=== PATIENT | male | born 1955 | race Caucasian/White ===

== ENCOUNTER 2018-02-08 20:58 | Inpatient (IN) | payer MEDICARE, MEDICAID ==
[2018-02-08 21:35] LABS: % BASOPHILS 0.7 % (0.0-2.0); % EOSINOPHILS 2.3 % (0.0-5.0); % LYMPHOCYTES 39.7 % (20.0-50.0); % MONOCYTES 10.3 % (2.0-10.0); EOSINOPHILE ABSOLUTE 0.1 Th/cmm (0.1-0.4); HEMATOCRIT 41.3 % (41.0-60); LYMPHOCYTE ABSOLUTE 2.3 Th/cmm (1.5-3.0); MEAN CELL VOLUME 93.7 fl (80-99); MEAN CORPUSCULAR HEMOGLOBIN 31.8 pg (26.0-30.0); MEAN PLATELET VOLUME 6.8 fl; MONOCYTE ABSOLUTE 0.6 Th/cmm (0.3-1.0); NEUTROPHILE ABSOLUTE 2.7 Th/cmm (1.8-8.0); PLATELET COUNT 245 Th/cmm (150-400); RED CELL DISTRIBUTION WIDTH 12.2 % (11.5-20.0); WHITE BLOOD COUNT 5.7 Th/cmm (4.8-10.8)
--- NOTE | 2018-02-08 21:48 | ED Physician Chart ---
ED Chief Complaint/HPI - Patient Information Date Seen:: 02/08/18 Time Seen:: 21:00 Chief Complaint:: Weakness History of Present Illness:: onset x 3 days of generalized weakness, ALOC, AMS, confusion, and poor oral intake; no report of trauma, H/As, S/T, neck pain, C/P, SOB, Abd. pain, A/N/V/D/ c, fever, chills, or urinary s/s Allergies:: Allergies Allergy/AdvReac Type Severity Reaction Status Date / Time acetaminophen [From Vicodin] Allergy Verified 02/08/18 21:01 codeine Allergy Verified 02/08/18 21:01 hydrocodone Allergy Verified 02/08/18 21:01 Vitals:: Vital Signs - 8 hr 02/08/18 21:01 Temp 98.0 F HR 86 RR 18 BP 133/75 O2 Sat % 96 Historian:: Patient, EMS Review:: Nurse's Note Reviewed, Old Chart Reviewed, EMS run form Reviewed ED Review of Systems - Review of Systems General/Constitutional: Fever, No chills, No weight loss, Weakness, No diaphoresis, No edema, No loss of appetite Skin: No skin lesions, No rash, No bruising Head: No headache, No light-headedness Eyes: No loss of vision, No pain, No diplopia ENT: No earache, No nasal drainage, No sore throat, No tinnitus Neck: No neck pain, No swelling, No thyromegaly, No stiffness, No mass noted Cardio Vascular: No chest pain, No palpitations, No PND, No orthopnea, No edema Pulmonary: No SOB, No cough, No sputum, No wheezing GI: No nausea, No vomiting, No diarrhea, No pain, No melena, No hematochezia, No constipation, No hematemesis G/U: No dysuria, No frequency, No hematuria, No nacturia Musculoskeletal: No bone or joint pain, No back pain, No muscle pain Endocrine: No polyuria, No polydipsia Psychiatric: Prior psych history, No depression, No anxiety, No suicidal ideation, No homicidal ideation, Auditory hallucination, No visual hallucination Hematopoietic: No bruising, No lymphadenopathy Allergic/Immuno: No urticaria, No angioedema Neurological: No syncope, No focal symptoms, Weakness, No paresthesia, No headache, No seizure, No dizziness, Confusion, No vertigo ED Past Medical History - Past Medical History Obtainable: Yes Past Medical History: HTN, DM, CVA/TIA, Seizures Family History: Diabetes Melitus, HTN Social History: Non Smoker, No Alcohol, No Drug Use, Single, Care Facility Surgical History: None Psychiatricy History: Schizophrenia Medication: Reviewed Family Medical History - Family Member Mother History Unknown: Yes ED Physical Exam - Physical Examination General/Constitutional: Awake, Well-developed, well-nourished, Alert, No distress, GCS 15, Non-toxic appearing, Ambulatory Head: Atraumatic Eyes: Lids, conjuctiva normal, PERRL, EOMI Skin: Nl inspection, No rash, No skin lesions, No ecchymosis, No lymphadenopathy Other Skin comments:: poor turgor with dry MM ENMT: External ears, nose nl, TM canals nl, Nasal exam nl, Lips, teeth, gums nl , Oropharynx nl, Tonsils nl Neck: Nontender, Full ROM w/o pain, No JVD, No nuchal rigidity, No bruit, No mass, No stridor Respiratory: Nl effort/Exclusion, Clear to Auscultation, No Wheeze/Rhonchi/Rales Cardio Vascular: RRR, No murmur, gallop, rubs, NL S1 S2, Carotid/Femoral/Distal pulses equal bilaterally GI: No tenderness/rebounding/guarding, No organomegaly, No hernia, Normal BS's, Nondistended, No mass/bruits, No McBurney tenderness : No CVA tenderness Extremities: No tenderness or effusion, Full ROM, normal strength in all extremities, No edema, Normal digits & nails Neuro/Psych: DTR's symmetric, Normal sensory exam, Normal motor strength, Judgement/insight normal, Mood normal, Normal gait, No focal deficits Other Neuro/Psych comments:: Disoriented and confused Misc: Normal back, No paraspinal tenderness ED Labs/Radiology/EKG Results - Lab Results Results: Laboratory Tests 02/08/18 21:23 WBC 5.7 RBC 4.40 Hgb 14.0 Hct 41.3 MCV 93.7 MCH 31.8 H MCHC Differential 34.0 RDW 12.2 Plt Count 245 MPV 6.8 Neutrophils % 47.0 Lymphocytes % 39.7 Monocytes % 10.3 H Eosinophils % 2.3 Basophils % 0.7 Comments:: Na+: 134; K+: 3.4 - Radiology Results Comments:: NAD - EKG Interpretations EKG Time:: 22:02 Rate & Rhythm: 85; NSR Comments:: non-specific st-t changes ED Septic Shock - . Is Septic Shock (SBP<90, OR Lactate>4 mmol\L) present?: No - <6hrs of presentation: Vital Signs: Vital Signs - 8 hr 02/08/18 21:01 Temp 98.0 F HR 86 RR 18 BP 133/75 O2 Sat % 96 ED Reassessment (Disposition) - Reassessment Reassessment Condition:: Improved - Diagnosis Diagnosis:: Hypokalemia; Hyponatremiia; Dehydration; Poor Oral Intake; Dementia - Aftercare/Follow up Instructions Aftercare/Follow-Up Instructions:: Counseled pt regarding lab results/diagnosis & need follow up, Counseled pt & family regarding lab results/diagnosis & need follow up - Patient Disposition Discharge/Transfer:: Acute Care w/in this hosp Accepting Physician:: Dr. Roe Time Called:: [id number] Time Responded:: 22:30 Admitted to:: Med/Surg Spoke to:: Dr. Roe Admitting Medical Physician:: Dr. Roe Condition at Disposition:: Stable, Improved
[2018-02-08 21:51] LABS: INR 0.99 (0.5-1.4); PROTHROMBIN TIME (TEST) 10.3 SECONDS (9.5-11.5)
[2018-02-08 21:55] LABS: ALB/GLOB RATIO 1.2 (1.0-1.8); ALKALINE PHOSPHATASE 94 U/L (34-104); ANION GAP 12.1 (7.0-16.0); BILIRUBIN,TOTAL 0.2 mg/dL (0.3-1.0); BUN - UREA NITROGEN 10 mg/dL (7-25); CALCIUM SERUM 9.1 mg/dL (8.6-10.3); CARBON DIOXIDE 25.3 mEq/L (21.0-31.0); CHLORIDE 100 mEq/L (98-107); CREATININE - SERUM 0.6 mg/dL (0.7-1.3); CREATININE KINASE 44 U/L (30-223); GFR AFRICAN-AMERICAN > 60.0 ml/min (>90); GFR NON AFRICAN-AMERICAN > 60.0 ml/min; GLUCOSE 118 mg/dL (70-105); POTASSIUM SERUM 3.4 mEq/L (3.5-5.1); SGOT 20 U/L (13-39); SGPT/ALT 28 U/L (7-52); SODIUM SERUM 134 mEq/L (136-145); TOTAL PROTEIN,SERUM 7.4 gm/dL (6.0-8.3)
[2018-02-08] MEDS ORDERED: Sodium Chloride 0.9% 1,000 ML IV ONE (21:59)
[2018-02-08] MEDS ORDERED: Potassium Chloride 20 mEq ER Tab PO ONE ×2 (22:00→22:37)
[2018-02-08 22:34] LABS: URINE MICROSCOPIC INDICATED? YES; URINE SOURCE MIDSTREAM
[2018-02-08 22:39] LABS: URINE BILIRUBIN NEGATIVE (NEGATIVE); URINE BLOOD NEGATIVE (NEGATIVE); URINE GLUCOSE (UA) NEGATIVE (NEGATIVE); URINE KETONE NEGATIVE (NEGATIVE); URINE LEUKOCYTE ESTERASE NEGATIVE (NEGATIVE); URINE NITRATE NEGATIVE (NEGATIVE); URINE PH 7.5 (4.6 - 8.0); URINE PROTEIN NEGATIVE (NEGATIVE); URINE UROBILINOGEN 0.2 E.U./dL (0.2 - 1.0)
[2018-02-08 22:43] LABS: URINE CLARITY CLEAR (CLEAR); URINE COLOR YELLOW
[2018-02-08 22:44] LABS: URINE BACTERIA FEW /hpf (NONE SEEN); URINE EPITHELIAL CELLS RARE /lpf (FEW); URINE RBC 0-2 /hpf (0-5); URINE WBC 0-2 /hpf (0-5)
[2018-02-08] MEDS ORDERED: Sodium Chloride 0.9% 1,000 ML IV SCH (23:00)
[2018-02-09 01:40] VITALS: BP 133/88
--- NOTE | 2018-02-09 05:51 | History and Physical ---
History of Present Illness - HPI Chief Complaint: Fatigue/Weakness HPI: 62 y/o male who presents to [facility] ER for 3 day history of fatigue/Weakness noted by the nursing staff. Patient was noted to have increased confusion at the facility. He was subsequently sent for further evaluation. While in the ER, the ER physician states, "ALOC, AMS, confusion, and poor oral intake; no report of trauma, H/As, S/T, neck pain, C/P, SOB, Abd. pain, A/N/V/D/c, fever, chills, or urinary s/s" Initial labwork .... WBC 5.7 H/H 14/41.3 Plat 245K Na 134 K 3.4 Bun/Cr 10/0.6 glu 118 UA neg ED Past Medical History - Past Medical History Obtainable: Yes Past Medical History: HTN, DM, CVA/TIA, Seizures Family History: Diabetes Melitus, HTN Social History: Non Smoker, No Alcohol, No Drug Use, Single, Care Facility Surgical History: None Psychiatricy History: Schizophrenia Medication: Reviewed Family Medical History - Family Member Mother History Unknown: Yes Patient was subsequently admitted for further evaluation and treatment. Vital Signs: Last Vital Signs Temp 967.7 F 02/09/18 04:00 Pulse 74 02/09/18 04:00 Resp 17 02/09/18 04:00 BP 126/83 02/09/18 04:00 Pulse Ox 95 02/09/18 04:00 Past Medical History Cardiovascular: Report: HTN [employer]: Report: CVA, Dementia, Seizure, TIA Psych: Report: Psychosis, Schizophrenia Musculoskeletal: Report: No Pertinent Hx Rheumatologic: Report: No pertinent Hx Infectious Disease: Report: No Pertinent Hx Renal/: Report: No Pertinent Hx Endocrine: Report: Diabetes Dermatology: Report: No Pertinent Hx - Past Surgical History Past Surgical History: No pertinent Hx Family Medical History - Family Member Mother History Unknown: Yes Social History Smoke: No Alcohol: None Drugs: None Lives: [facility] - Medications Home Medications: Home Medication Medication Instructions Recorded Type Benztropine [Cogentin*] 2 mg PO HS 02/08/18 History Calcium Carb/Vit D 500mg/200U 2 tab PO BID 02/08/18 History [Oscal w/Vitamin D] Divalproex Sodium [Depakote] 250 mg PO TID 02/08/18 History Lorazepam [Ativan] 1 mg PO DAILY 02/08/18 History Magnesium Hydroxide [Milk of 30 ml PO QTHUR 02/08/18 History Magnesia] Multivitamin [Multivitamins] 1 cap PO DAILY 02/08/18 History Phenytoin [Dilantin] 150 mg PO BID 02/08/18 History amLODIPine Besylate [Norvasc*] 10 mg PO DAILY 02/08/18 History busPIRone [Buspar] 7.5 mg PO BID 02/08/18 History risperiDONE [RisperDAL] 3 mg PO BID 02/08/18 History - Allergies Allergies/Adverse Reactions: Allergies Allergy/AdvReac Type Severity Reaction Status Date / Time acetaminophen [From Vicodin] Allergy Verified 02/08/18 21:01 codeine Allergy Verified 02/08/18 21:01 hydrocodone Allergy Verified 02/08/18 21:01 Review of Systems - Review of Systems Constitutional: Report: No Significant Eyes: Report: No Significant ENT: Report: No Significant Respiratory: Report: No Significant Cardiovascular: Report: No Significant Gastrointestinal: Report: No Significant Genitourinary: Report: No Significant Musculoskeletal: Report: No Significant Skin: Report: No Significant Neurological: Report: Weakness, Confusion Physical Exam - Physical Exam HEENT: Report: Ears Nose Throat within normal limits, Pharnyx within normal limits Neck: Report: Within normal limits Cardiovascular Systems: Report: +s1/s2 noted, Regular, Rate and Rhythm Respiratory: Report: Breath Sounds are within normal limits Abdomen: Report: Non-tender to palpation Back: Report: Inspection of back is within normal limits. Extremities: Report: Non-tender to palpation. Skin: Report: Color of skin is within normal limits Neuro/Psych: Report: Mood affect is within normal limits, A+Ox3 - Assessment Assessment: Hypokalemia Hyponatremiia Dehydration Poor Oral Intake Dementia - Plan Plan: Will admit to med-surg Psychiatric Evaluation w/ Dr. mann repeat CBC,CMP this AM Continue home meds
[2018-02-09 06:12] LABS: % BASOPHILS 0.2 % (0.0-2.0); % EOSINOPHILS 2.2 % (0.0-5.0); % MONOCYTES 9.2 % (2.0-10.0); % NEUTROPHILS 55.4 % (40.0-80.0); EOSINOPHILE ABSOLUTE 0.1 Th/cmm (0.1-0.4); HEMATOCRIT 43.2 % (41.0-60); HEMOGLOBIN 14.5 gm/dL (12-16); LYMPHOCYTE ABSOLUTE 1.9 Th/cmm (1.5-3.0); MEAN CORPUSCULAR HEMOGLOBIN 31.3 pg (26.0-30.0); MEAN CORPUSCULAR HGB CONC 33.6 pg (28.0-36.0); MEAN PLATELET VOLUME 6.8 fl; MONOCYTE ABSOLUTE 0.5 Th/cmm (0.3-1.0); NEUTROPHILE ABSOLUTE 3.2 Th/cmm (1.8-8.0); PLATELET COUNT 237 Th/cmm (150-400); RED BLOOD COUNT 4.65 Mil/cmm (4.30-5.70); RED CELL DISTRIBUTION WIDTH 12.1 % (11.5-20.0); WHITE BLOOD COUNT 5.7 Th/cmm (4.8-10.8)
[2018-02-09 06:25] LABS: ALB/GLOB RATIO 1.1 (1.0-1.8); ALKALINE PHOSPHATASE 94 U/L (34-104); ANION GAP 11.2 (7.0-16.0); BILIRUBIN,TOTAL 0.3 mg/dL (0.3-1.0); BUN - UREA NITROGEN 7 mg/dL (7-25); CALCIUM SERUM 9.1 mg/dL (8.6-10.3); CARBON DIOXIDE 23.7 mEq/L (21.0-31.0); CHLORIDE 103 mEq/L (98-107); CREATININE - SERUM 0.6 mg/dL (0.7-1.3); GFR AFRICAN-AMERICAN > 60.0 ml/min (>90); GFR NON AFRICAN-AMERICAN > 60.0 ml/min; GLUCOSE 99 mg/dL (70-105); POTASSIUM SERUM 3.9 mEq/L (3.5-5.1); SGOT 18 U/L (13-39); SGPT/ALT 27 U/L (7-52); SODIUM SERUM 134 mEq/L (136-145); TOTAL PROTEIN,SERUM 7.6 gm/dL (6.0-8.3)
[2018-02-09] MEDS: Magnesium Hydroxide (MOM) 30 mL UDC PO SCH ×2 (06:41→06:42)
--- NOTE | 2018-02-09 07:37 | Diagnostic Imaging Report ---
CHEST X-RAY: AP view INDICATION: pain COMPARISON: None FINDINGS: Chronic lung changes are noted. Increased left basal lung markings are also noted. There is probable left basal pleural thickening. Heart size is borderline prominent. There is minimal atherosclerosis of the aortic arch. Degenerative changes of the spine are noted. IMPRESSION: Chronic lung changes with left basal increased lung markings which may be chronic or may be due to atelectasis, however, faint infiltrate in this region cannot be excluded. Please clinical findings and old exams. If indicated a follow-up PA and lateral views may also be obtained for further assessment. LEFT basal pleural thickening suspected.
--- NOTE | 2018-02-09 08:05 | Consultation ---
DATE OF CONSULTATION: 02/09/2018 PSYCHIATRIC CONSULT PATIENT'S AGE: 62-year-old. SEX: Male. PHYSICIAN: Dr. Vazquez. REASON FOR THE CONSULT: Generalized weakness. HISTORY OF PRESENT ILLNESS: The patient is a 62-year-old male who was admitted to the hospital because of fatigue and weakness for 3 days. The patient also has history of bipolar versus schizoaffective disorder and Dr. Vazquez asked me to evaluate the patient. Chart reviewed and the patient interviewed and discussed the patient's condition with the staff. The patient is [place] speaking male. He seems to be confused and forgetful. The patient also was not able to follow my directions because of his confusion. The patient also at times seems to be agitated and restless. He also is alert at this time and seems oriented to place, person and situation. PAST PSYCHIATRIC HISTORY: The patient has history of what seems to be schizoaffective disorder. MEDICATIONS: The patient is taking Risperdal, Depakote, Ativan and BuSpar. PAST MEDICAL HISTORY: The patient was admitted to the hospital because of fatigue and generalized weakness. SOCIAL HISTORY: The patient lives in a care home. No known alcohol or drug use. ALLERGIES: No known allergies. MENTAL STATUS EXAM: The patient appears slightly older than his stated age. He is [place] speaking. Anxious. Seems to be confused. Thought processes per the staff have been incoherent and disorganized. The patient seems to be preoccupied and responding. Poor insight and judgment. The patient is alert and seems to be disoriented to place, person and situation. ASSESSMENT: PRIMARY DIAGNOSIS: Schizoaffective disorder, bipolar type, severe, with psychotic features. TREATMENT PLAN: We will monitor the patient's behavior and condition closely. We will start individual as well as milieu psychotherapy. We will also monitor psychotropic medications. At this time and because of his generalized weakness, I will discontinue BuSpar. Also, we will decrease Risperdal to 2 mg twice a day. Also, we will continue to work on his fatigue and irritability. Also, we will get Depakote blood level. Thanks to Dr. Vazquez and will follow up with you. JOB# [id number]
[2018-02-09] MEDS: Multivitamin Tab PO SCH (09:20)
[2018-02-09] MEDS: Calcium Carb/Vit D 500 mg/200 U Tab PO SCH ×2 (09:23→17:00)
[2018-02-09] MEDS ORDERED: Benztropine 1 MG TAB PO SCH (21:00)
--- NOTE | 2018-02-10 08:15 | General Progress Note ---
Subjective - Review of Systems Service Date: 02/10/18 Subjective: Patient was seen and examined. No acute distress. Awake, alert. afebrile. for evaluation to daily-psyche. Objective - Results Result Diagrams: 02/09/18 05:55 02/09/18 05:55 Recent Labs: Laboratory Last Values WBC 5.7 Th/cmm (4.8-10.8) 02/09/18 05:55 RBC 4.65 Mil/cmm (4.30-5.70) 02/09/18 05:55 Hgb 14.5 gm/dL (12-16) 02/09/18 05:55 Hct 43.2 % (41.0-60) 02/09/18 05:55 MCV 93.0 fl (80-99) 02/09/18 05:55 MCH 31.3 pg (26.0-30.0) H 02/09/18 05:55 MCHC Differential 33.6 pg (28.0-36.0) 02/09/18 05:55 RDW 12.1 % (11.5-20.0) 02/09/18 05:55 Plt Count 237 Th/cmm (150-400) 02/09/18 05:55 MPV 6.8 fl 02/09/18 05:55 Neutrophils % 55.4 % (40.0-80.0) 02/09/18 05:55 Lymphocytes % 33.0 % (20.0-50.0) 02/09/18 05:55 Monocytes % 9.2 % (2.0-10.0) 02/09/18 05:55 Eosinophils % 2.2 % (0.0-5.0) 02/09/18 05:55 Basophils % 0.2 % (0.0-2.0) 02/09/18 05:55 PT 10.3 SECONDS (9.5-11.5) 02/08/18 21:23 INR 0.99 (0.5-1.4) 02/08/18 21:23 PTT (Actin FS) 26.3 SECONDS (26.0-38.0) 02/08/18 21:23 Sodium 134 mEq/L (136-145) L 02/09/18 05:55 Potassium 3.9 mEq/L (3.5-5.1) 02/09/18 05:55 Chloride 103 mEq/L (98-107) 02/09/18 05:55 Carbon Dioxide 23.7 mEq/L (21.0-31.0) 02/09/18 05:55 Anion Gap 11.2 (7.0-16.0) 02/09/18 05:55 BUN 7 mg/dL (7-25) 02/09/18 05:55 Creatinine 0.6 mg/dL (0.7-1.3) L 02/09/18 05:55 Est GFR ( Amer) > 60.0 ml/min (>90) 02/09/18 05:55 Est GFR (Non-Af Amer) > 60.0 ml/min 02/09/18 05:55 BUN/Creatinine Ratio 11.7 02/09/18 05:55 Glucose 99 mg/dL (70-105) 02/09/18 05:55 Whole Bld Lactic Acid 1.75 mmol/L (0.60-1.99) 02/08/18 21:23 Calcium 9.1 mg/dL (8.6-10.3) 02/09/18 05:55 Total Bilirubin 0.3 mg/dL (0.3-1.0) 02/09/18 05:55 AST 18 U/L (13-39) 02/09/18 05:55 ALT 27 U/L (7-52) 02/09/18 05:55 Alkaline Phosphatase 94 U/L (34-104) 02/09/18 05:55 Creatine Kinase 44 U/L (30-223) 02/08/18 21:23 Troponin I < 0.01 ng/mL (0.01-0.05) L 02/08/18 21:23 Total Protein 7.6 gm/dL (6.0-8.3) 02/09/18 05:55 Albumin 4.0 gm/dL (4.2-5.5) L 02/09/18 05:55 Globulin 3.6 gm/dL 02/09/18 05:55 Albumin/Globulin Ratio 1.1 (1.0-1.8) 02/09/18 05:55 Urine Source MIDSTREAM 02/08/18 22:15 Urine Color YELLOW 02/08/18 22:15 Urine Clarity CLEAR (CLEAR) 02/08/18 22:15 Urine pH 7.5 (4.6 - 8.0) 02/08/18 22:15 Ur Specific [place] 1.010 (1.005-1.030) 02/08/18 22:15 Urine Protein NEGATIVE mg/dL (NEGATIVE) 02/08/18 22:15 Urine Glucose (UA) NEGATIVE mg/dL (NEGATIVE) 02/08/18 22:15 Urine Ketones NEGATIVE mg/dL (NEGATIVE) 02/08/18 22:15 Urine Blood NEGATIVE (NEGATIVE) 02/08/18 22:15 Urine Nitrate NEGATIVE (NEGATIVE) 02/08/18 22:15 Urine Bilirubin NEGATIVE (NEGATIVE) 02/08/18 22:15 Urine Urobilinogen 0.2 E.U./dL (0.2 - 1.0) 02/08/18 22:15 Ur Leukocyte Esterase NEGATIVE (NEGATIVE) 02/08/18 22:15 Urine RBC 0-2 /hpf (0-5) H 02/08/18 22:15 Urine WBC 0-2 /hpf (0-5) 02/08/18 22:15 Ur Epithelial Cells RARE /lpf (FEW) 02/08/18 22:15 Urine Bacteria FEW /hpf (NONE SEEN) 02/08/18 22:15 Valproic Acid 34.7 ug/mL (50.0-100.0) L 02/09/18 05:55 - Physical Exam Vitals and I&O: Vital Signs Temp 97.2 F 02/10/18 07:52 Pulse 77 02/10/18 07:52 Resp 18 02/10/18 07:52 BP 145/92 02/10/18 07:52 Pulse Ox 96 02/10/18 07:52 Intake & Output 02/09/18 02/10/18 02/10/18 18:59 06:59 18:59 Intake Total 800 Balance 800 Weight (lbs) 78.925 kg 71.395 kg Intake: Oral 800 Other: # Voids 4 # Bowel Movements 1 Weight Source Bedscale Bedscale Active Medications: Current Medications Amlodipine Besylate (Norvasc) 10 mg PO DAILY BRIAN Stop: 04/10/18 08:59 Last Admin: 02/09/18 09:23 Dose: Not Given Benztropine Mesylate (Cogentin) 2 mg PO BRIAN Stop: 04/10/18 20:59 Last Admin: 02/09/18 20:03 Dose: 2 mg Calcium/Vitamin D (Oscal W/Vitamin D) 2 tab PO BID BRIAN Stop: 04/10/18 08:59 Last Admin: 02/09/18 17:00 Dose: 2 tab Divalproex Sodium (Depakote Dr) 250 mg PO TID BRIAN PRN Reason: Protocol Stop: 04/10/18 08:59 Last Admin: 02/09/18 20:03 Dose: 250 mg Sodium Chloride (Nacl 0.9%) 1,000 mls @ 50 mls/hr IV .Q20H BRIAN Stop: 04/09/18 22:59 Last Admin: 02/09/18 01:54 Dose: 50 mls/hr Lorazepam (Ativan) 1 mg PO DAILY [facility] PRN Reason: Protocol Stop: 04/10/18 08:59 Last Admin: 02/09/18 09:23 Dose: Not Given Magnesium Hydroxide (Milk Of Magnesia) 30 ml PO QTHUR BRIAN Stop: 04/10/18 04:59 Last Admin: 02/09/18 06:42 Dose: Not Given Multivitamins/Vitamin C (Theragran) 1 tab PO DAILY BRIAN Stop: 04/10/18 08:59 Last Admin: 02/09/18 09:20 Dose: 1 tab Phenytoin (Dilantin) 150 mg PO BID BRIAN Stop: 04/10/18 08:59 Last Admin: 02/09/18 17:00 Dose: 150 mg Risperidone (Risperdal) 2 mg PO BID [facility] PRN Reason: Protocol Stop: 04/10/18 08:59 Last Admin: 02/09/18 17:00 Dose: 2 mg General: Alert, Oriented x3, No acute distress HEENT: Atraumatic, PERRLA, EOMI Neck: Supple Cardiovascular: Regular rate, Normal S1, Normal S2 Lungs: Clear to auscultation Abdomen: Bowel sounds, Soft, no Distended Extremities: no Clubbing, no Cyanosis, no Edema Assessment/Plan - Assessment Assessment: Hypokalemia Hyponatremiia Dehydration Poor Oral Intake Dementia HTN - Plan Plan: Will admit to med-surg Psychiatric Evaluation w/ Dr. mann repeat CBC,CMP this AM Continue home meds for evaluation for geropsyche medically stable. will add clonidine 0.1mg PO q8
[2018-02-10] MEDS: Calcium Carb/Vit D 500 mg/200 U Tab PO SCH (09:28)
[2018-02-10] MEDS: Multivitamin Tab PO SCH (09:28)
--- NOTE | 2018-02-10 10:15 | Progress Notes ---
DATE: SUBJECTIVE: Chart reviewed and the patient interviewed. Also discussed the patient's condition with the staff and reviewed records and labs. The patient is still anxious and he is still in irritable and angry mood. The patient also is restless and he is pacing up and down and trying to get out of the hospital in a confused state. He also still needs lots of redirections and gets agitated and irritable when staff tried to redirect him. Although the patient is taking multiple psychotropic medications, if he is still agitated and is still confused and can be dangerous to self . ASSESSMENT: The patient is still psychotic and confused. PLAN: Recommend that the patient to go to Geropsych Unit when bed available. Also continue current medications and monitor behavior closely. JOB# [id number]
--- NOTE | 2018-02-15 18:53 | Discharge Summary ---
DATE OF DISCHARGE: 02/10/2018 PRELIMINARY DIAGNOSES. 1. Hypokalemia. 2. Hyponatremia. 3. Dehydration. 4. Poor oral intake. 5. Dementia. 6. Hypertension. 7. Diabetes mellitus. 8. CVA/TIA. 9. Seizure disorder. 10. Schizophrenia. DISCHARGE DIAGNOSES: 1. Hypokalemia. 2. Hyponatremia. 3. Dehydration. 4. Poor oral intake. 5. Dementia. 6. Hypertension. 7. Diabetes mellitus. 8. CVA/TIA. 9. Seizure disorder. 10. Schizophrenia. HISTORY OF PRESENT ILLNESS: This is a 62-year-old male who presents to [facility] ER for a 3-day history of fatigue, weakness noted by the nursing staff. The patient was noted to have increased confusion at the long-term facility and was subsequently sent for further evaluation and treatment. While in the ER, the ER physician did some initial lab work with a white count noted to be 5.7, hemoglobin 14.0, hematocrit 41.3, platelets 245,000. Sodium 134, potassium 3.4, BUN and creatinine 10 and 0.6, glucose 118. UA was negative. The patient subsequently admitted to [facility] for further evaluation and treatment. Psychiatric evaluation by Dr. Bunch was ordered. The patient was to continue his home medications. I ordered a repeat CBC and CMP for the following morning. HOSPITAL COURSE: The patient improved during his hospital stay with increased energy. The patient was subsequently transferred to [facility] for further evaluation and treatment. The patient was seen and evaluated by Psychiatry. Please see his dictated report. [facility]# [id number]
== END 2018-02-10 10:00 | DRG 641 ==
LOC: ER 20:58 → MSI 23:05
PROVIDERS: ADMIT Family Medicine; ATTEND Family Medicine
DX: E87.1 Hypo-osmolality and hyponatremia (principal); F31.5 Bipolar disorder, current episode depressed, severe, with psychotic features; E87.6 Hypokalemia; E86.0 Dehydration; F03.90 Unspecified dementia, unspecified severity, without behavioral disturbance, psychotic disturbance, mood disturbance, and anxiety; I10 Essential (primary) hypertension; E11.9 Type 2 diabetes mellitus without complications; R56.9 Unspecified convulsions; Z86.73 Personal history of transient ischemic attack (TIA), and cerebral infarction without residual deficits; Z83.3 Family history of diabetes mellitus; Z82.49 Family history of ischemic heart disease and other diseases of the circulatory system
CPT/HCPCS: 36415-UA; 71045-TC; 80053-TC; 80164-TC; 81001-TC; 82550-TC; 83605; 84484-TC; 85025-TC; 85610-TC; 85730-TC; 93005; J7030; Z7610

== ENCOUNTER 2019-01-22 19:39 | Inpatient (IN) | payer MEDICAID, MEDICARE ==
--- NOTE | 2019-01-22 20:32 | ED Physician Chart ---
ED Chief Complaint/HPI - Patient Information Date Seen:: 01/22/19 Time Seen:: 20:29 Chief Complaint:: AGITATION History of Present Illness:: 63 YR OLD MALE FROM [facility] FOR AGITATION GEROPSYCH EVALUATION PT HAS HTN DM CVA SEIZURES AND PSYCHOSIS Allergies:: Allergies Allergy/AdvReac Type Severity Reaction Status Date / Time acetaminophen [From Vicodin] Allergy Severe Verified 01/22/19 20:12 codeine Allergy Severe Verified 01/22/19 20:11 hydrocodone Allergy Severe Verified 01/22/19 20:12 Vitals:: Vital Signs - 8 hr 01/22/19 19:47 Temp 97.4 F HR 86 RR 18 BP 131/77 O2 Sat % 96 ED Past Medical History - Past Medical History Past Medical History: HTN, DM, CVA/TIA, Seizures Psychiatricy History: Dementia, Other (PSYCHOSIS) Family Medical History - Family Member Mother History Unknown: Yes ED Physical Exam - Physical Examination General/Constitutional: Awake, Well-developed, well-nourished, Alert, No distress, GCS 15, Non-toxic appearing, Ambulatory Head: Atraumatic Eyes: Lids, conjuctiva normal, PERRL, EOMI Skin: Nl inspection, No rash, No skin lesions, No ecchymosis, Well hydrated, No lymphadenopathy ENMT: External ears, nose nl, Nasal exam nl, Lips, teeth, gums nl Neck: Nontender, Full ROM w/o pain, No JVD, No nuchal rigidity, No bruit, No mass, No stridor Respiratory: Nl effort/Exclusion, Clear to Auscultation, No Wheeze/Rhonchi/Rales Cardio Vascular: RRR, No murmur, gallop, rubs, NL S1 S2 GI: No tenderness/rebounding/guarding, No organomegaly, No hernia, Normal BS's, Nondistended, No mass/bruits, No McBurney tenderness : No CVA tenderness Extremities: No tenderness or effusion, Full ROM, normal strength in all extremities, No edema, Normal digits & nails Neuro/Psych: Alert/oriented, DTR's symmetric, Normal sensory exam, Normal motor strength, Judgement/insight normal, Mood normal, Normal gait, No focal deficits Misc: Normal back, No paraspinal tenderness ED Assessment - Assessment General Assessment: AGITATION DEMENTIA ED Septic Shock - . Is Septic Shock (SBP<90, OR Lactate>4 mmol\L) present?: No - <6hrs of presentation: Vital Signs: Vital Signs - 8 hr 01/22/19 19:47 Temp 97.4 F HR 86 RR 18 BP 131/77 O2 Sat % 96 ED Reassessment (Disposition) - Reassessment Reassessment:: AGITATION PSYCHOSIS - Patient Disposition Discharge/Transfer:: Acute Care w/in this hosp Admitted to:: Med/Surg Condition at Disposition:: Stable
[2019-01-22 20:47] LABS: HEMOGLOBIN 13.9 gm/dL (12-16); MEAN CELL VOLUME 93.8 fl (80-99); MEAN CORPUSCULAR HEMOGLOBIN 31.8 pg (26.0-30.0); MEAN CORPUSCULAR HGB CONC 33.9 pg (28.0-36.0); MEAN PLATELET VOLUME 6.3 fl; PLATELET COUNT 248 Th/cmm (150-400); RED BLOOD COUNT 4.37 Mil/cmm (4.30-5.70); RED CELL DISTRIBUTION WIDTH 12.3 % (11.5-20.0); WHITE BLOOD COUNT 5.9 Th/cmm (4.8-10.8)
[2019-01-22 21:35] LABS: ALB/GLOB RATIO 1.5 (1.0-1.8); ALBUMIN 4.1 gm/dL (4.2-5.5); ALKALINE PHOSPHATASE 86 U/L (34-104); ANION GAP 13.6 (7.0-16.0); BILIRUBIN,TOTAL 0.3 mg/dL (0.3-1.0); BUN - UREA NITROGEN 12 mg/dL (7-25); CALCIUM SERUM 9.1 mg/dL (8.6-10.3); CHLORIDE 100 mEq/L (98-107); CREATININE - SERUM 0.7 mg/dL (0.7-1.3); GFR AFRICAN-AMERICAN > 60.0 ml/min (>90); GFR NON AFRICAN-AMERICAN > 60.0 ml/min; GLUCOSE 135 mg/dL (70-105); POTASSIUM SERUM 3.6 mEq/L (3.5-5.1); SGOT 18 U/L (13-39); SGPT/ALT 26 U/L (7-52); SODIUM SERUM 133 mEq/L (136-145); TOTAL PROTEIN,SERUM 6.9 gm/dL (6.0-8.3)
[2019-01-22 21:44] LABS: BAND NEUTROPHILE 0 % (0-10); BASOPHIL 0 % (0-3); EOSINOPHIL 1 % (0-5); LYMPHOCYTE 46 % (20-50); MONOCYTE 9 % (2-10); NEUTROPHILS 44 % (40-80)
[2019-01-22 21:50] LABS: URINE SOURCE CLEAN C
[2019-01-22 21:52] LABS: URINE BILIRUBIN NEGATIVE (NEGATIVE); URINE BLOOD NEGATIVE (NEGATIVE); URINE GLUCOSE (UA) NEGATIVE (NEGATIVE); URINE KETONE NEGATIVE (NEGATIVE); URINE LEUKOCYTE ESTERASE NEGATIVE (NEGATIVE); URINE NITRATE NEGATIVE (NEGATIVE); URINE PROTEIN NEGATIVE (NEGATIVE); URINE UROBILINOGEN 0.2 E.U./dL (0.2 - 1.0)
[2019-01-22 22:02] LABS: URINE CLARITY CLEAR (CLEAR); URINE COLOR YELLOW; URINE MICROSCOPIC INDICATED? YES
[2019-01-22 22:03] LABS: URINE EPITHELIAL CELLS NONE SEEN /lpf (FEW); URINE RBC NONE SEEN /hpf (0-5); URINE WBC 0-2 /hpf (0-5)
[2019-01-22 22:04] LABS: URINE BACTERIA FEW /hpf (NONE SEEN)
[2019-01-22 23:47] VITALS: BP 113/71
[2019-01-23 01:20] LABS: CHOLESTEROL 236 mg/dL (<200); HDL -HIGH DENSITY LIPOPROTEIN 38 mg/dL (23-92); TRIGLYCERIDES 651 mg/dL (<150)
[2019-01-23] MEDS ORDERED: Maalox 30 mL Cup PO PRN (04:11)
--- NOTE | 2019-01-23 08:39 | History and Physical ---
History of Present Illness - HPI Chief Complaint: Change in behavior HPI: 63 y/o male who is a resident of a SNF was transferred to [facility] for change in behavior noted by the nursing staff. Patient has a past medical history of HTN, DM, CVA, Seizure d/o and psychosis. Patient had initial labwork done in the ER which revealed the following.... WBC 5.9 H/H 13.9/41.0 platelets 248K Na 133 K 3.6 Bun/Cr 12/0.7 glucose 135 UA neg Chol 235 Trig 651 HDL 38 LDL 126 Patient was subsequently admitted to [facility] for further evaluation and treatment. Vital Signs: Last Vital Signs Temp 97.8 F 01/23/19 06:19 Pulse 84 01/23/19 06:19 Resp 20 01/23/19 06:19 BP 140/94 01/23/19 06:19 Pulse Ox 92 01/23/19 06:19 Past Medical History Cardiovascular: Report: HTN, Hyperlipidemia Pulmonary: Report: No Pertinent Hx ORDER FULFILLMENT SPECIALIST: Report: CVA, Dementia, Seizure GI: Report: No Pertinent Hx Psych: Report: Psychosis Musculoskeletal: Report: No Pertinent Hx Rheumatologic: Report: No pertinent Hx Infectious Disease: Report: No Pertinent Hx Renal/: Report: No Pertinent Hx Endocrine: Report: Diabetes Dermatology: Report: No Pertinent Hx - Past Surgical History Past Surgical History: No pertinent Hx Family Medical History - Family Member Mother History Unknown: Yes Ethnicity: Unknown Living Status: Unknown Social History Smoke: No Alcohol: None Drugs: None Lives: Prison - Medications Home Medications: Home Medication Medication Instructions Recorded Type Acetaminophen [Tylenol] 650 mg PO Q4HR PRN tab 02/23/18 Rx Al Hyd/Mg Hyd/Simethicone [Maalox] 30 ml PO Q4HR PRN udc 02/23/18 Rx Benztropine [Cogentin*] 2 mg PO HS tab 02/23/[address] [Depakoamrita DR] 500 mg PO BID tcp 02/23/18 Rx Lorazepam [Ativan] 0.5 mg PO Q4HR PRN tab 02/23/18 Rx Magnesium Hydroxide [Milk of 30 ml PO HS PRN udc 02/23/18 Rx Magnesia] Magnesium Hydroxide [Milk of 30 ml PO QTHUR udc 02/23/18 Rx Magnesia] Metoprolol Tartrate [Lopressor] 25 mg PO BID tab 02/23/18 Rx Multivitamin [Theragran] 1 tab PO DAILY tab 02/23/18 Rx Phenytoin [Dilantin] 150 mg PO BID udc 02/23/18 Rx Zolpidem Tartrate [Ambien] 5 mg PO HS PRN tab 02/23/18 Rx amLODIPine Besylate [Norvasc*] 10 mg PO DAILY tab 02/23/18 Rx cloNIDine HCl [Catapres] 0.1 mg PO Q8HR PRN tab 02/23/18 Rx Benztropine [Cogentin*] 2 mg PO HS 01/22/19 History Calcium Carb/Vit D 500mg/200U 1 tab PO BID 01/22/19 History [Oscal w/Vitamin D] Docusate Sodium [Colace] 250 mg PO DAILY 01/22/19 History Lorazepam [Ativan] 0.75 mg PO DAILY 01/22/19 History Magnesium Hydroxide [Milk of 30 ml PO HS 01/22/19 History Magnesia] busPIRone [Buspar] 5 mg PO BID 01/22/19 History risperiDONE [RisperDAL] 2.5 mg PO BID 01/22/19 History - Allergies Allergies/Adverse Reactions: Allergies Allergy/AdvReac Type Severity Reaction Status Date / Time acetaminophen [From Vicodin] Allergy Severe Verified 01/22/19 20:12 codeine Allergy Severe Verified 01/22/19 20:11 hydrocodone Allergy Severe Verified 01/22/19 20:12 Review of Systems - Review of Systems Constitutional: Report: No Significant Eyes: Report: No Significant ENT: Report: No Significant Respiratory: Report: No Significant Cardiovascular: Report: No Significant Gastrointestinal: Report: No Significant Genitourinary: Report: No Significant Musculoskeletal: Report: No Significant Skin: Report: No Significant Neurological: Report: No Significant Physical Exam - Physical Exam HEENT: Report: Ears Nose Throat within normal limits, Pharnyx within normal limits Neck: Report: Within normal limits Cardiovascular Systems: Report: +s1/s2 noted, Regular, Rate and Rhythm Respiratory: Report: Breath Sounds are within normal limits, Clear to Auscultation of lung reece Abdomen: Report: Non-tender to palpation Back: Report: Inspection of back is within normal limits. Extremities: Report: Non-tender to palpation. Skin: Report: Color of skin is within normal limits Neuro/Psych: Report: Mood affect is within normal limits, A+Ox3 - Lab Results All Lab Results last 24 hours: Laboratory Results - last 24 hr 01/22/19 01/22/19 01/22/19 20:30 20:30 20:30 WBC 5.9 RBC 4.37 Hgb 13.9 Hct 41.0 MCV 93.8 MCH 31.8 H MCHC Differential 33.9 RDW 12.3 Plt Count 248 MPV 6.3 Add Manual Diff YES Band Neutrophils % 0 Neutrophils (Manual) 44 Lymphocytes 46 Monocytes 9 Eosinophils 1 Basophils 0 Sodium 133 L Potassium 3.6 Chloride 100 Carbon Dioxide 23.0 Anion Gap 13.6 BUN 12 Creatinine 0.7 Est GFR ( Amer) > 60.0 Est GFR (Non-Af Amer) > 60.0 BUN/Creatinine Ratio 17.1 Glucose 135 H Calcium 9.1 Total Bilirubin 0.3 AST 18 ALT 26 Alkaline Phosphatase 86 Total Protein 6.9 Albumin 4.1 L Globulin 2.8 Albumin/Globulin Ratio 1.5 Triglycerides 651 H Cholesterol 236 H LDL Cholesterol Direct 126 HDL Cholesterol 38 Urine Source Urine Color Urine Clarity Urine pH Ur Specific [place] Urine Protein Urine Glucose (UA) Urine Ketones Urine Blood Urine Nitrate Urine Bilirubin Urine Urobilinogen Ur Leukocyte Esterase Urine RBC Urine WBC Ur Epithelial Cells Urine Bacteria 01/22/19 21:41 WBC RBC Hgb Hct MCV MCH MCHC Differential RDW Plt Count MPV Add Manual Diff Band Neutrophils % Neutrophils (Manual) Lymphocytes Monocytes Eosinophils Basophils Sodium Potassium Chloride Carbon Dioxide Anion Gap BUN Creatinine Est GFR ( Amer) Est GFR (Non-Af Amer) BUN/Creatinine Ratio Glucose Calcium Total Bilirubin AST ALT Alkaline Phosphatase Total Protein Albumin Globulin Albumin/Globulin Ratio Triglycerides Cholesterol LDL Cholesterol Direct HDL Cholesterol Urine Source CLEAN C Urine Color YELLOW Urine Clarity CLEAR Urine pH 7.0 Ur Specific [place] 1.010 Urine Protein NEGATIVE Urine Glucose (UA) NEGATIVE Urine Ketones NEGATIVE Urine Blood NEGATIVE Urine Nitrate NEGATIVE Urine Bilirubin NEGATIVE Urine Urobilinogen 0.2 Ur Leukocyte Esterase NEGATIVE Urine RBC NONE SEEN Urine WBC 0-2 Ur Epithelial Cells NONE SEEN Urine Bacteria FEW - Assessment Assessment: psychosis HTN, DM, CVA, Seizure d/o - Plan Plan: will admitted patient to [facility] home meds.
[2019-01-23] MEDS: Multivitamin Tab PO SCH (08:55)
[2019-01-23] MEDS: Calcium Carb/Vit D 500 mg/200 U Tab PO SCH ×2 (08:56→17:09)
--- NOTE | 2019-01-23 11:45 | History & Physical ---
ADMIT DATE: 01/22/2019 IDENTIFYING INFORMATION: The patient is a 63-year-old male. CHIEF COMPLAINT: No answer. HISTORY OF PRESENT ILLNESS: The patient was sent from [facility] facility to this hospital because of behavior problems. 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 He was not making sense. He believes that he is 18 years of age and that he is single, never , no children. Unable to tell me the date, where he is, why he is here. The patient has prior admissions to this facility back in January of last year, a year ago. The patient unable to give much information. He is also diabetic. PAST PSYCHIATRIC HISTORY: The patient was at [facility] almost a year ago because of confusion at the long-term. The patient also was a very poor historian with a history of schizophrenia. MEDICAL HISTORY: CVA, seizure, TIA. ALLERGIES: HE IS ALLERGIC TO ACETAMINOPHEN, CODEINE, AND HYDROCODONE. MEDICATIONS: The patient has been on amlodipine, Cogentin 2 mg at bedtime, BuSpar 5 mg twice a day. He is on calcium and vitamin D and clonidine as needed. He is on Depakote 500 mg twice a day, multivitamin, Dilantin 150 twice a day, Risperdal 2.5 mg twice a day. FAMILY AND SOCIAL HISTORY: The patient lives in nursing facility. Unable to give much information. MENTAL STATUS EXAMINATION: The patient was alert. He was able to talk; however, unable to answer questions appropriately. He believes he is 18 years of age, he has middle school education, used to work as a rail car driver. His affect is constricted. Thoughts are concrete. Speech is coherent yet confused, demented. 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 He cannot remember his age, believes he is 18. Recent memory is poor, cannot remember what happened that led to admission here. His insight about his illness is impaired. is judgment is poor with his behavior. IMPRESSION: Dementia with behavior disturbances. History of schizophrenia. MEDICAL DIAGNOSES: As per medical doctor. RECOMMENDATIONS: We will continue his medication. We will do group therapy and milieu therapy. ESTIMATED LENGTH OF STAY: 3-7 days. DISCHARGE CRITERIA: Decrease in psychosis, confusion. After discharge, outpatient treatment. JOB# [id number] [facility]
[2019-01-23] MEDS: Benztropine 1 MG TAB PO SCH (20:43)
[2019-01-23] MEDS: Magnesium Hydroxide (MOM) 30 mL UDC PO SCH (20:43)
[2019-01-23] MEDS ORDERED: Benztropine 1 MG TAB PO SCH (21:00)
--- NOTE | 2019-01-24 08:12 | General Progress Note ---
Subjective - Review of Systems Service Date: 01/24/19 Subjective: Patient is awake,alert, afebrile VS T97.9 P85 R20 BP 128/76 Objective - Results Result Diagrams: 01/22/19 20:30 01/22/19 20:30 Recent Labs: Laboratory Last Values WBC 5.9 Th/cmm (4.8-10.8) 01/22/19 20:30 RBC 4.37 Mil/cmm (4.30-5.70) 01/22/19 20:30 Hgb 13.9 gm/dL (12-16) 01/22/19 20:30 Hct 41.0 % (41.0-60) 01/22/19 20:30 MCV 93.8 fl (80-99) 01/22/19 20:30 MCH 31.8 pg (26.0-30.0) H 01/22/19 20:30 MCHC Differential 33.9 pg (28.0-36.0) 01/22/19 20:30 RDW 12.3 % (11.5-20.0) 01/22/19 20:30 Plt Count 248 Th/cmm (150-400) 01/22/19 20:30 MPV 6.3 fl 01/22/19 20:30 Add Manual Diff YES 01/22/19 20:30 Band Neutrophils % 0 % (0-10) 01/22/19 20:30 Neutrophils (Manual) 44 % (40-80) 01/22/19 20:30 Lymphocytes 46 % (20-50) 01/22/19 20:30 Monocytes 9 % (2-10) 01/22/19 20:30 Eosinophils 1 % (0-5) 01/22/19 20:30 Basophils 0 % (0-3) 01/22/19 20:30 Sodium 133 mEq/L (136-145) L 01/22/19 20:30 Potassium 3.6 mEq/L (3.5-5.1) 01/22/19 20:30 Chloride 100 mEq/L (98-107) 01/22/19 20:30 Carbon Dioxide 23.0 mEq/L (21.0-31.0) 01/22/19 20:30 Anion Gap 13.6 (7.0-16.0) 01/22/19 20:30 BUN 12 mg/dL (7-25) 01/22/19 20:30 Creatinine 0.7 mg/dL (0.7-1.3) 01/22/19 20:30 Est GFR ( Amer) > 60.0 ml/min (>90) 01/22/19 20:30 Est GFR (Non-Af Amer) > 60.0 ml/min 01/22/19 20:30 BUN/Creatinine Ratio 17.1 01/22/19 20:30 Glucose 135 mg/dL (70-105) H 01/22/19 20:30 Calcium 9.1 mg/dL (8.6-10.3) 01/22/19 20:30 Total Bilirubin 0.3 mg/dL (0.3-1.0) 01/22/19 20:30 AST 18 U/L (13-39) 01/22/19 20:30 ALT 26 U/L (7-52) 01/22/19 20:30 Alkaline Phosphatase 86 U/L (34-104) 01/22/19 20:30 Total Protein 6.9 gm/dL (6.0-8.3) 01/22/19 20:30 Albumin 4.1 gm/dL (4.2-5.5) L 01/22/19 20:30 Globulin 2.8 gm/dL 01/22/19 20:30 Albumin/Globulin Ratio 1.5 (1.0-1.8) 01/22/19 20:30 Triglycerides 651 mg/dL (<150) H 01/22/19 20:30 Cholesterol 236 mg/dL (<200) H 01/22/19 20:30 LDL Cholesterol Direct 126 mg/dL (75-193) 01/22/19 20:30 HDL Cholesterol 38 mg/dL (23-92) 01/22/19 20:30 Urine Source CLEAN C 01/22/19 21:41 Urine Color YELLOW 01/22/19 21:41 Urine Clarity CLEAR (CLEAR) 01/22/19 21:41 Urine pH 7.0 (4.6 - 8.0) 01/22/19 21:41 Ur Specific [place] 1.010 (1.005-1.030) 01/22/19 21:41 Urine Protein NEGATIVE mg/dL (NEGATIVE) 01/22/19 21:41 Urine Glucose (UA) NEGATIVE mg/dL (NEGATIVE) 01/22/19 21:41 Urine Ketones NEGATIVE mg/dL (NEGATIVE) 01/22/19 21:41 Urine Blood NEGATIVE (NEGATIVE) 01/22/19 21:41 Urine Nitrate NEGATIVE (NEGATIVE) 01/22/19 21:41 Urine Bilirubin NEGATIVE (NEGATIVE) 01/22/19 21:41 Urine Urobilinogen 0.2 E.U./dL (0.2 - 1.0) 01/22/19 21:41 Ur Leukocyte Esterase NEGATIVE (NEGATIVE) 01/22/19 21:41 Urine RBC NONE SEEN /hpf (0-5) 01/22/19 21:41 Urine WBC 0-2 /hpf (0-5) 01/22/19 21:41 Ur Epithelial Cells NONE SEEN /lpf (FEW) 01/22/19 21:41 Urine Bacteria FEW /hpf (NONE SEEN) 01/22/19 21:41 - Physical Exam Vitals and I&O: Vital Signs Temp 97.9 F 01/24/19 05:36 Pulse 85 01/24/19 05:36 Resp 20 01/24/19 05:36 BP 128/76 01/24/19 05:36 Pulse Ox 97 01/24/19 05:36 Intake & Output 01/23/19 01/24/19 01/24/19 18:59 06:59 18:59 Intake Total 300 Balance 300 Intake: Oral 300 Other: # Voids 1 # Bowel Movements 0 Active Medications: Current Medications Acetaminophen (Tylenol) 650 mg PO Q4HR PRN PRN Reason: Mild Pain / Temp above 100 Stop: 03/24/19 04:10 Al Hydrox/Mg Hydrox/Simethicone (Maalox) 30 ml PO Q4HR PRN PRN Reason: GI DISTRESS Stop: 03/24/19 04:10 Amlodipine Besylate (Norvasc) 10 mg PO DAILY [facility] Stop: 03/24/19 08:59 Last Admin: 01/23/19 08:55 Dose: 10 mg Benztropine Mesylate (Cogentin) 2 mg PO HS [facility] Stop: 03/24/19 20:59 Last Admin: 01/23/19 20:43 Dose: 2 mg Buspirone HCl (Buspar) 10 mg PO BID [facility]; Protocol Stop: 03/25/19 08:59 Calcium/Vitamin D (Oscal W/Vitamin D) 1 tab PO BID [facility] Stop: 03/24/19 08:59 Last Admin: 01/23/19 17:09 Dose: 1 tab Divalproex Sodium (Depakote Dr) 500 mg PO BID [facility]; Protocol Stop: 03/24/19 08:59 Last Admin: 01/23/19 17:09 Dose: 500 mg Docusate Sodium (Colace) 250 mg PO DAILY [facility] Stop: 03/24/19 08:59 Last Admin: 01/23/19 08:52 Dose: 250 mg Lorazepam (Ativan) 0.5 mg PO Q4HR PRN; Protocol PRN Reason: Anxiety Stop: 03/24/19 00:08 Lorazepam (Ativan) 0.75 mg PO DAILY [facility]; Protocol Stop: 03/24/19 08:59 Last Admin: 01/23/19 08:53 Dose: 0.75 mg Magnesium Hydroxide (Milk Of Magnesia) 30 ml PO HS [facility] Stop: 03/24/19 20:59 Last Admin: 01/23/19 20:43 Dose: 30 ml Metoprolol Tartrate (Lopressor) 25 mg PO BID [facility] Stop: 03/24/19 08:59 Last Admin: 01/23/19 17:10 Dose: 25 mg Multivitamins/Vitamin C (Theragran) 1 tab PO DAILY [facility] Stop: 03/24/19 08:59 Last Admin: 01/23/19 08:55 Dose: 1 tab Phenytoin (Dilantin) 150 mg PO BID [facility] Stop: 03/24/19 08:59 Last Admin: 01/23/19 17:08 Dose: 150 mg Risperidone 2 mg/ Risperidone (0.5 mg) 2.5 mg PO BID [facility] Stop: 03/24/19 08:59 Last Admin: 01/23/19 17:10 Dose: 2.5 mg Zolpidem Tartrate (Ambien) 5 mg PO HS PRN PRN Reason: Insomnia Stop: 03/24/19 00:08 General: Alert, Oriented x3, No acute distress HEENT: Atraumatic, PERRLA, EOMI Neck: Supple Cardiovascular: Regular rate, Normal S1, Normal S2 Lungs: Clear to auscultation Abdomen: Bowel sounds, Soft Extremities: no Clubbing, no Cyanosis, no Edema Neurological: Normal gait Assessment/Plan - Assessment Assessment: psychosis HTN, DM, CVA, Seizure d/o - Plan Plan: will admitted patient to [facility] continue home meds.
[2019-01-24] MEDS: Multivitamin Tab PO SCH (09:21)
[2019-01-24] MEDS: Calcium Carb/Vit D 500 mg/200 U Tab PO SCH ×2 (09:21→16:56)
[2019-01-24] MEDS: Benztropine 1 MG TAB PO SCH (21:47)
[2019-01-24] MEDS: Magnesium Hydroxide (MOM) 30 mL UDC PO SCH (21:47)
--- NOTE | 2019-01-25 04:36 | Progress Notes ---
DATE: 01/24/2019 SUBJECTIVE: Chart reviewed and the patient interviewed. Also, discussed the patient's condition with the staff and reviewed records and labs. The patient is restless and he is pacing up and down the unit aimlessly. The patient also is still trying to get out of the hospital. Also, the patient is paranoid about his family and that somebody is going to hurt him. He still mumbles and talking to himself during interview and I got help with translation from staff from [place] to [place]. Also, he has been actively responding to stimuli and is still severely anxious. ASSESSMENT: The patient is still psychotic and agitated. TREATMENT PLAN: Continue to monitor his behavior and his condition closely. Also, we will increase BuSpar to 10 mg twice a day and continue Depakote 500 mg twice a day and Risperdal 2.5 mg twice a day. Also, we will get Depakote blood level and continue to follow up. JOB# [id number]
--- NOTE | 2019-01-25 08:15 | General Progress Note ---
Subjective - Review of Systems Service Date: 01/25/19 Subjective: Patient is awake,alert, afebrile VS T97.6 P74 R19 BP 128/65 Objective - Results Result Diagrams: 01/22/19 20:30 01/22/19 20:30 Recent Labs: Laboratory Last Values WBC 5.9 Th/cmm (4.8-10.8) 01/22/19 20:30 RBC 4.37 Mil/cmm (4.30-5.70) 01/22/19 20:30 Hgb 13.9 gm/dL (12-16) 01/22/19 20:30 Hct 41.0 % (41.0-60) 01/22/19 20:30 MCV 93.8 fl (80-99) 01/22/19 20:30 MCH 31.8 pg (26.0-30.0) H 01/22/19 20:30 MCHC Differential 33.9 pg (28.0-36.0) 01/22/19 20:30 RDW 12.3 % (11.5-20.0) 01/22/19 20:30 Plt Count 248 Th/cmm (150-400) 01/22/19 20:30 MPV 6.3 fl 01/22/19 20:30 Add Manual Diff YES 01/22/19 20:30 Band Neutrophils % 0 % (0-10) 01/22/19 20:30 Neutrophils (Manual) 44 % (40-80) 01/22/19 20:30 Lymphocytes 46 % (20-50) 01/22/19 20:30 Monocytes 9 % (2-10) 01/22/19 20:30 Eosinophils 1 % (0-5) 01/22/19 20:30 Basophils 0 % (0-3) 01/22/19 20:30 Sodium 133 mEq/L (136-145) L 01/22/19 20:30 Potassium 3.6 mEq/L (3.5-5.1) 01/22/19 20:30 Chloride 100 mEq/L (98-107) 01/22/19 20:30 Carbon Dioxide 23.0 mEq/L (21.0-31.0) 01/22/19 20:30 Anion Gap 13.6 (7.0-16.0) 01/22/19 20:30 BUN 12 mg/dL (7-25) 01/22/19 20:30 Creatinine 0.7 mg/dL (0.7-1.3) 01/22/19 20:30 Est GFR ( Amer) > 60.0 ml/min (>90) 01/22/19 20:30 Est GFR (Non-Af Amer) > 60.0 ml/min 01/22/19 20:30 BUN/Creatinine Ratio 17.1 01/22/19 20:30 Glucose 135 mg/dL (70-105) H 01/22/19 20:30 Calcium 9.1 mg/dL (8.6-10.3) 01/22/19 20:30 Total Bilirubin 0.3 mg/dL (0.3-1.0) 01/22/19 20:30 AST 18 U/L (13-39) 01/22/19 20:30 ALT 26 U/L (7-52) 01/22/19 20:30 Alkaline Phosphatase 86 U/L (34-104) 01/22/19 20:30 Total Protein 6.9 gm/dL (6.0-8.3) 01/22/19 20:30 Albumin 4.1 gm/dL (4.2-5.5) L 01/22/19 20:30 Globulin 2.8 gm/dL 01/22/19 20:30 Albumin/Globulin Ratio 1.5 (1.0-1.8) 01/22/19 20:30 Triglycerides 651 mg/dL (<150) H 01/22/19 20:30 Cholesterol 236 mg/dL (<200) H 01/22/19 20:30 LDL Cholesterol Direct 126 mg/dL (75-193) 01/22/19 20:30 HDL Cholesterol 38 mg/dL (23-92) 01/22/19 20:30 Urine Source CLEAN C 01/22/19 21:41 Urine Color YELLOW 01/22/19 21:41 Urine Clarity CLEAR (CLEAR) 01/22/19 21:41 Urine pH 7.0 (4.6 - 8.0) 01/22/19 21:41 Ur Specific [place] 1.010 (1.005-1.030) 01/22/19 21:41 Urine Protein NEGATIVE mg/dL (NEGATIVE) 01/22/19 21:41 Urine Glucose (UA) NEGATIVE mg/dL (NEGATIVE) 01/22/19 21:41 Urine Ketones NEGATIVE mg/dL (NEGATIVE) 01/22/19 21:41 Urine Blood NEGATIVE (NEGATIVE) 01/22/19 21:41 Urine Nitrate NEGATIVE (NEGATIVE) 01/22/19 21:41 Urine Bilirubin NEGATIVE (NEGATIVE) 01/22/19 21:41 Urine Urobilinogen 0.2 E.U./dL (0.2 - 1.0) 01/22/19 21:41 Ur Leukocyte Esterase NEGATIVE (NEGATIVE) 01/22/19 21:41 Urine RBC NONE SEEN /hpf (0-5) 01/22/19 21:41 Urine WBC 0-2 /hpf (0-5) 01/22/19 21:41 Ur Epithelial Cells NONE SEEN /lpf (FEW) 01/22/19 21:41 Urine Bacteria FEW /hpf (NONE SEEN) 01/22/19 21:41 Valproic Acid 55.0 ug/mL (50.0-100.0) 01/24/19 10:35 - Physical Exam Vitals and I&O: Vital Signs Temp 97.6 F 01/25/19 06:53 Pulse 74 01/25/19 06:53 Resp 18 01/25/19 07:54 BP 128/65 01/25/19 06:53 Pulse Ox 97 01/25/19 06:53 Intake & Output 01/24/19 01/25/19 01/25/19 18:59 06:59 18:59 Intake Total 1200 120 Balance 1200 120 Intake: Oral 1080 120 Other 120 Other: # Voids 4 3 # Bowel Movements 0 1 Active Medications: Current Medications Acetaminophen (Tylenol) 650 mg PO Q4HR PRN PRN Reason: Mild Pain / Temp above 100 Stop: 03/24/19 04:10 Al Hydrox/Mg Hydrox/Simethicone (Maalox) 30 ml PO Q4HR PRN PRN Reason: GI DISTRESS Stop: 03/24/19 04:10 Amlodipine Besylate (Norvasc) 10 mg PO DAILY [facility] Stop: 03/24/19 08:59 Last Admin: 01/24/19 09:20 Dose: 10 mg Benztropine Mesylate (Cogentin) 2 mg PO HS [facility] Stop: 03/24/19 20:59 Last Admin: 01/24/19 21:47 Dose: 2 mg Buspirone HCl (Buspar) 10 mg PO BID [facility]; Protocol Stop: 03/25/19 08:59 Last Admin: 01/24/19 16:56 Dose: 10 mg Calcium/Vitamin D (Oscal W/Vitamin D) 1 tab PO BID [facility] Stop: 03/24/19 08:59 Last Admin: 01/24/19 16:56 Dose: 1 tab Divalproex Sodium (Depakote Dr) 500 mg PO BID [facility]; Protocol Stop: 03/24/19 08:59 Last Admin: 01/24/19 16:55 Dose: 500 mg Docusate Sodium (Colace) 250 mg PO DAILY [facility] Stop: 03/24/19 08:59 Last Admin: 01/24/19 09:20 Dose: 250 mg Lorazepam (Ativan) 0.5 mg PO Q4HR PRN; Protocol PRN Reason: Anxiety Stop: 03/24/19 00:08 Lorazepam (Ativan) 0.75 mg PO DAILY [facility]; Protocol Stop: 03/24/19 08:59 Last Admin: 01/24/19 09:17 Dose: 0.75 mg Magnesium Hydroxide (Milk Of Magnesia) 30 ml PO HS [facility] Stop: 03/24/19 20:59 Last Admin: 01/24/19 21:47 Dose: 30 ml Metoprolol Tartrate (Lopressor) 25 mg PO BID [facility] Stop: 03/24/19 08:59 Last Admin: 01/24/19 16:55 Dose: 25 mg Multivitamins/Vitamin C (Theragran) 1 tab PO DAILY [facility] Stop: 03/24/19 08:59 Last Admin: 01/24/19 09:21 Dose: 1 tab Phenytoin (Dilantin) 150 mg PO BID [facility] Stop: 03/24/19 08:59 Last Admin: 01/24/19 16:53 Dose: 150 mg Risperidone 2 mg/ Risperidone (0.5 mg) 2.5 mg PO BID [facility] Stop: 03/24/19 08:59 Last Admin: 01/24/19 16:54 Dose: 2.5 mg Zolpidem Tartrate (Ambien) 5 mg PO HS PRN PRN Reason: Insomnia Stop: 03/24/19 00:08 Last Admin: 01/24/19 21:49 Dose: 5 mg General: Alert, Oriented x3, No acute distress HEENT: Atraumatic, PERRLA, EOMI Neck: Supple Cardiovascular: Regular rate, Normal S1, Normal S2 Lungs: Clear to auscultation Abdomen: Bowel sounds, Soft Extremities: no Clubbing, no Cyanosis, no Edema Neurological: Normal gait Assessment/Plan - Assessment Assessment: psychosis HTN, DM, CVA, Seizure d/o - Plan Plan: continue current treatment.
[2019-01-25] MEDS: Multivitamin Tab PO SCH (09:04)
[2019-01-25] MEDS: Calcium Carb/Vit D 500 mg/200 U Tab PO SCH ×2 (09:04→16:31)
[2019-01-25] MEDS: Magnesium Hydroxide (MOM) 30 mL UDC PO SCH (21:06)
[2019-01-25] MEDS: Benztropine 1 MG TAB PO SCH (21:06)
--- NOTE | 2019-01-26 08:23 | General Progress Note ---
Subjective - Review of Systems Service Date: 01/26/19 Subjective: Patient is awake,alert, afebrile VS T98.0 P74 R19 BP 120/65 Objective - Results Result Diagrams: 01/22/19 20:30 01/22/19 20:30 Recent Labs: Laboratory Last Values WBC 5.9 Th/cmm (4.8-10.8) 01/22/19 20:30 RBC 4.37 Mil/cmm (4.30-5.70) 01/22/19 20:30 Hgb 13.9 gm/dL (12-16) 01/22/19 20:30 Hct 41.0 % (41.0-60) 01/22/19 20:30 MCV 93.8 fl (80-99) 01/22/19 20:30 MCH 31.8 pg (26.0-30.0) H 01/22/19 20:30 MCHC Differential 33.9 pg (28.0-36.0) 01/22/19 20:30 RDW 12.3 % (11.5-20.0) 01/22/19 20:30 Plt Count 248 Th/cmm (150-400) 01/22/19 20:30 MPV 6.3 fl 01/22/19 20:30 Add Manual Diff YES 01/22/19 20:30 Band Neutrophils % 0 % (0-10) 01/22/19 20:30 Neutrophils (Manual) 44 % (40-80) 01/22/19 20:30 Lymphocytes 46 % (20-50) 01/22/19 20:30 Monocytes 9 % (2-10) 01/22/19 20:30 Eosinophils 1 % (0-5) 01/22/19 20:30 Basophils 0 % (0-3) 01/22/19 20:30 Sodium 133 mEq/L (136-145) L 01/22/19 20:30 Potassium 3.6 mEq/L (3.5-5.1) 01/22/19 20:30 Chloride 100 mEq/L (98-107) 01/22/19 20:30 Carbon Dioxide 23.0 mEq/L (21.0-31.0) 01/22/19 20:30 Anion Gap 13.6 (7.0-16.0) 01/22/19 20:30 BUN 12 mg/dL (7-25) 01/22/19 20:30 Creatinine 0.7 mg/dL (0.7-1.3) 01/22/19 20:30 Est GFR ( Amer) > 60.0 ml/min (>90) 01/22/19 20:30 Est GFR (Non-Af Amer) > 60.0 ml/min 01/22/19 20:30 BUN/Creatinine Ratio 17.1 01/22/19 20:30 Glucose 135 mg/dL (70-105) H 01/22/19 20:30 Calcium 9.1 mg/dL (8.6-10.3) 01/22/19 20:30 Total Bilirubin 0.3 mg/dL (0.3-1.0) 01/22/19 20:30 AST 18 U/L (13-39) 01/22/19 20:30 ALT 26 U/L (7-52) 01/22/19 20:30 Alkaline Phosphatase 86 U/L (34-104) 01/22/19 20:30 Total Protein 6.9 gm/dL (6.0-8.3) 01/22/19 20:30 Albumin 4.1 gm/dL (4.2-5.5) L 01/22/19 20:30 Globulin 2.8 gm/dL 01/22/19 20:30 Albumin/Globulin Ratio 1.5 (1.0-1.8) 01/22/19 20:30 Triglycerides 651 mg/dL (<150) H 01/22/19 20:30 Cholesterol 236 mg/dL (<200) H 01/22/19 20:30 LDL Cholesterol Direct 126 mg/dL (75-193) 01/22/19 20:30 HDL Cholesterol 38 mg/dL (23-92) 01/22/19 20:30 Urine Source CLEAN C 01/22/19 21:41 Urine Color YELLOW 01/22/19 21:41 Urine Clarity CLEAR (CLEAR) 01/22/19 21:41 Urine pH 7.0 (4.6 - 8.0) 01/22/19 21:41 Ur Specific [place] 1.010 (1.005-1.030) 01/22/19 21:41 Urine Protein NEGATIVE mg/dL (NEGATIVE) 01/22/19 21:41 Urine Glucose (UA) NEGATIVE mg/dL (NEGATIVE) 01/22/19 21:41 Urine Ketones NEGATIVE mg/dL (NEGATIVE) 01/22/19 21:41 Urine Blood NEGATIVE (NEGATIVE) 01/22/19 21:41 Urine Nitrate NEGATIVE (NEGATIVE) 01/22/19 21:41 Urine Bilirubin NEGATIVE (NEGATIVE) 01/22/19 21:41 Urine Urobilinogen 0.2 E.U./dL (0.2 - 1.0) 01/22/19 21:41 Ur Leukocyte Esterase NEGATIVE (NEGATIVE) 01/22/19 21:41 Urine RBC NONE SEEN /hpf (0-5) 01/22/19 21:41 Urine WBC 0-2 /hpf (0-5) 01/22/19 21:41 Ur Epithelial Cells NONE SEEN /lpf (FEW) 01/22/19 21:41 Urine Bacteria FEW /hpf (NONE SEEN) 01/22/19 21:41 Valproic Acid 55.0 ug/mL (50.0-100.0) 01/24/19 10:35 - Physical Exam Vitals and I&O: Vital Signs Temp 98.0 F 01/26/19 06:24 Pulse 74 01/26/19 06:24 Resp 19 01/26/19 06:24 BP 120/65 01/26/19 06:24 Pulse Ox 98 01/26/19 06:24 Intake & Output 01/25/19 01/26/19 01/26/19 18:59 06:59 18:59 Intake Total 1500 120 Balance 1500 120 Intake: Oral 1500 120 Other: # Voids 3 2 # Bowel Movements 0 0 Active Medications: Current Medications Acetaminophen (Tylenol) 650 mg PO Q4HR PRN PRN Reason: Mild Pain / Temp above 100 Stop: 03/24/19 04:10 Al Hydrox/Mg Hydrox/Simethicone (Maalox) 30 ml PO Q4HR PRN PRN Reason: GI DISTRESS Stop: 03/24/19 04:10 Amlodipine Besylate (Norvasc) 10 mg PO DAILY BRIAN Stop: 03/24/19 08:59 Last Admin: 01/25/19 09:05 Dose: 10 mg Benztropine Mesylate (Cogentin) 2 mg PO HS [facility]RIAN Stop: 03/24/19 20:59 Last Admin: 01/25/19 21:06 Dose: 2 mg Buspirone HCl (Buspar) 10 mg PO BID [facility]; Protocol Stop: 03/25/19 08:59 Last Admin: 01/25/19 16:31 Dose: 10 mg Calcium/Vitamin D (Oscal W/Vitamin D) 1 tab PO BID [facility] Stop: 03/24/19 08:59 Last Admin: 01/25/19 16:31 Dose: 1 tab Divalproex Sodium (Depakote Dr) 500 mg PO BID [facility]; Protocol Stop: 03/24/19 08:59 Last Admin: 01/25/19 16:30 Dose: 500 mg Docusate Sodium (Colace) 250 mg PO DAILY [facility] Stop: 03/24/19 08:59 Last Admin: 01/25/19 09:03 Dose: 250 mg Lorazepam (Ativan) 0.5 mg PO Q4HR PRN; Protocol PRN Reason: Anxiety Stop: 03/24/19 00:08 Lorazepam (Ativan) 0.75 mg PO DAILY [facility]; Protocol Stop: 03/24/19 08:59 Last Admin: 01/25/19 09:06 Dose: 0.75 mg Magnesium Hydroxide (Milk Of Magnesia) 30 ml PO HS [facility] Stop: 03/24/19 20:59 Last Admin: 01/25/19 21:06 Dose: 30 ml Metoprolol Tartrate (Lopressor) 25 mg PO BID [facility] Stop: 03/24/19 08:59 Last Admin: 01/25/19 16:31 Dose: 25 mg Multivitamins/Vitamin C (Theragran) 1 tab PO DAILY [facility] Stop: 03/24/19 08:59 Last Admin: 01/25/19 09:04 Dose: 1 tab Phenytoin (Dilantin) 150 mg PO BID [facility] Stop: 03/24/19 08:59 Last Admin: 01/25/19 16:32 Dose: 150 mg Risperidone 2 mg/ Risperidone (0.5 mg) 2.5 mg PO BID [facility] Stop: 03/24/19 08:59 Last Admin: 01/25/19 16:30 Dose: 2.5 mg Zolpidem Tartrate (Ambien) 5 mg PO HS PRN PRN Reason: Insomnia Stop: 03/24/19 00:08 Last Admin: 01/25/19 21:06 Dose: 5 mg General: Alert, Oriented x3, No acute distress HEENT: Atraumatic, PERRLA, EOMI Neck: Supple Cardiovascular: Regular rate, Normal S1, Normal S2 Lungs: Clear to auscultation Abdomen: Bowel sounds, Soft Extremities: no Clubbing, no Cyanosis, no Edema Neurological: Normal gait Assessment/Plan - Assessment Assessment: psychosis HTN, DM, CVA, Seizure d/o - Plan Plan: continue current treatment. Nutritional Asmnt/Malnutr-PDOC - Dietary Evaluation Malnutrition Findings (Please click <Entered> for more info): Nutritional Asmnt/Malnutrition Start: 01/25/19 17: 22 Text: Status: Complete Freq: Protocol: Document 01/25/19 17:22 LCHENG (Rec: 01/25/19 17:36 HENG [email or web address]) Nutritional Asmnt/Malnutrition Patient General Information Nutritional Screening Moderate Risk Diagnosis psychosis Pertinent Medical Hx/Surgical Hx HTN, DM, CVA/TIA, seizures, dementia, psychosis Subjective Information Pt seen in bed, awake, Nepali speaking. Per EMR, PO intake 100%. Current Diet Order/ Nutrition Support NCS Pertinent Medications oscal w/vit D, colace, theragran Pertinent Labs 01/22 Na 133, glucose 135, alb 4 .1 Nutritional Hx/Data Height 1.73 m Height (Calculated Centimeters) 172.7 Current Weight (lbs) 72.575 kg Weight (Calculated Kilograms) 72.6 Weight (Calculated Grams) 02100.8 [place] Body Weight 154 Body Mass Index (BMI) 24.3 Weight Status Approriate GI Symptoms GI Symptoms None Last BM 01/25 Difficult in: None Skin Integrity/Comment: intact Current %PO Good (75-100%) Estimated Nutritional Goals BEE in Kcals: Using Current wt Calories/Kcals/Kg 25-30 Kcals Calculated 5027-6408 Protein: Using Current wt Protein g/k.8 Protein Calculated 58 Fluid: ml 25-30ml (1ml/kcal) Nutritional Problem No current Nutrition Prob Problem N/A Malnutrition Alert Is there a minimum of two criteria No selected? Query Text:Check all the applicable criteria. A minimum of two criteria are recommended for diagnosis of either severe or non-severe malnutrition. Malnutrition Related to Morbid Obesity Malnutrition related to morbid obesity No Intervention/Recommendation Comments 1. Continue with NCS diet as ordered. 2. Monitor PO intake, wt, labs and skin integrity 3. F/U as low risk in 7 days Expected Outcomes/Goals Expected Outcomes/Goals 1. PO intake to meet at least 75% of nutritional needs. 2. Wt stability, skin to remain intact, labs to approach WNL.
[2019-01-26] MEDS: Multivitamin Tab PO SCH (08:37)
[2019-01-26] MEDS: Calcium Carb/Vit D 500 mg/200 U Tab PO SCH ×2 (08:39→16:39)
--- NOTE | 2019-01-26 16:22 | Progress Notes ---
DATE: PSYCHIATRIC PROGRESS NOTE SUBJECTIVE: Chart reviewed and the patient interviewed. Also discussed the patient's condition with the staff and reviewed. The patient continued to be paranoid and is still actively responding to stimuli. The patient also is still restless and suspicious and easily agitated. He also is interacting with a lot of anger and is still easily agitated. Otherwise, the patient is compliant with taking his medications with no side effects of medications. ASSESSMENT: The patient is still psychotic and agitated. TREATMENT PLAN: Continue to monitor his behavior and his condition closely. Also, Depakote blood level that was done yesterday, came back to be 55, which is within therapeutic level. We will continue same dose and continue to follow up. [facility]# [id number]
[2019-01-26] MEDS: Benztropine 1 MG TAB PO SCH (21:48)
[2019-01-26] MEDS: Magnesium Hydroxide (MOM) 30 mL UDC PO SCH (21:49)
--- NOTE | 2019-01-27 05:11 | General Progress Note ---
Subjective - Review of Systems Service Date: 01/27/19 Subjective: Patient is awake,alert, afebrile VS T98.1 P74 R19 BP 120/80 Objective - Results Result Diagrams: 01/22/19 20:30 01/22/19 20:30 Recent Labs: Laboratory Last Values WBC 5.9 Th/cmm (4.8-10.8) 01/22/19 20:30 RBC 4.37 Mil/cmm (4.30-5.70) 01/22/19 20:30 Hgb 13.9 gm/dL (12-16) 01/22/19 20:30 Hct 41.0 % (41.0-60) 01/22/19 20:30 MCV 93.8 fl (80-99) 01/22/19 20:30 MCH 31.8 pg (26.0-30.0) H 01/22/19 20:30 MCHC Differential 33.9 pg (28.0-36.0) 01/22/19 20:30 RDW 12.3 % (11.5-20.0) 01/22/19 20:30 Plt Count 248 Th/cmm (150-400) 01/22/19 20:30 MPV 6.3 fl 01/22/19 20:30 Add Manual Diff YES 01/22/19 20:30 Band Neutrophils % 0 % (0-10) 01/22/19 20:30 Neutrophils (Manual) 44 % (40-80) 01/22/19 20:30 Lymphocytes 46 % (20-50) 01/22/19 20:30 Monocytes 9 % (2-10) 01/22/19 20:30 Eosinophils 1 % (0-5) 01/22/19 20:30 Basophils 0 % (0-3) 01/22/19 20:30 Sodium 133 mEq/L (136-145) L 01/22/19 20:30 Potassium 3.6 mEq/L (3.5-5.1) 01/22/19 20:30 Chloride 100 mEq/L (98-107) 01/22/19 20:30 Carbon Dioxide 23.0 mEq/L (21.0-31.0) 01/22/19 20:30 Anion Gap 13.6 (7.0-16.0) 01/22/19 20:30 BUN 12 mg/dL (7-25) 01/22/19 20:30 Creatinine 0.7 mg/dL (0.7-1.3) 01/22/19 20:30 Est GFR ( Amer) > 60.0 ml/min (>90) 01/22/19 20:30 Est GFR (Non-Af Amer) > 60.0 ml/min 01/22/19 20:30 BUN/Creatinine Ratio 17.1 01/22/19 20:30 Glucose 135 mg/dL (70-105) H 01/22/19 20:30 Calcium 9.1 mg/dL (8.6-10.3) 01/22/19 20:30 Total Bilirubin 0.3 mg/dL (0.3-1.0) 01/22/19 20:30 AST 18 U/L (13-39) 01/22/19 20:30 ALT 26 U/L (7-52) 01/22/19 20:30 Alkaline Phosphatase 86 U/L (34-104) 01/22/19 20:30 Total Protein 6.9 gm/dL (6.0-8.3) 01/22/19 20:30 Albumin 4.1 gm/dL (4.2-5.5) L 01/22/19 20:30 Globulin 2.8 gm/dL 01/22/19 20:30 Albumin/Globulin Ratio 1.5 (1.0-1.8) 01/22/19 20:30 Triglycerides 651 mg/dL (<150) H 01/22/19 20:30 Cholesterol 236 mg/dL (<200) H 01/22/19 20:30 LDL Cholesterol Direct 126 mg/dL (75-193) 01/22/19 20:30 HDL Cholesterol 38 mg/dL (23-92) 01/22/19 20:30 Urine Source CLEAN C 01/22/19 21:41 Urine Color YELLOW 01/22/19 21:41 Urine Clarity CLEAR (CLEAR) 01/22/19 21:41 Urine pH 7.0 (4.6 - 8.0) 01/22/19 21:41 Ur Specific [place] 1.010 (1.005-1.030) 01/22/19 21:41 Urine Protein NEGATIVE mg/dL (NEGATIVE) 01/22/19 21:41 Urine Glucose (UA) NEGATIVE mg/dL (NEGATIVE) 01/22/19 21:41 Urine Ketones NEGATIVE mg/dL (NEGATIVE) 01/22/19 21:41 Urine Blood NEGATIVE (NEGATIVE) 01/22/19 21:41 Urine Nitrate NEGATIVE (NEGATIVE) 01/22/19 21:41 Urine Bilirubin NEGATIVE (NEGATIVE) 01/22/19 21:41 Urine Urobilinogen 0.2 E.U./dL (0.2 - 1.0) 01/22/19 21:41 Ur Leukocyte Esterase NEGATIVE (NEGATIVE) 01/22/19 21:41 Urine RBC NONE SEEN /hpf (0-5) 01/22/19 21:41 Urine WBC 0-2 /hpf (0-5) 01/22/19 21:41 Ur Epithelial Cells NONE SEEN /lpf (FEW) 01/22/19 21:41 Urine Bacteria FEW /hpf (NONE SEEN) 01/22/19 21:41 Valproic Acid 55.0 ug/mL (50.0-100.0) 01/24/19 10:35 - Physical Exam Vitals and I&O: Vital Signs Temp 98.1 F 01/26/19 20:12 Pulse 74 01/26/19 20:12 Resp 19 01/26/19 20:12 BP 120/80 01/26/19 20:12 Pulse Ox 97 01/26/19 20:12 Intake & Output 01/26/19 01/26/19 01/27/19 06:59 18:59 06:59 Intake Total 120 1200 Balance 120 1200 Intake: Oral 120 1200 Other: # Voids 2 # Bowel Movements 0 1 Active Medications: Current Medications Acetaminophen (Tylenol) 650 mg PO Q4HR PRN PRN Reason: Mild Pain / Temp above 100 Stop: 03/24/19 04:10 Al Hydrox/Mg Hydrox/Simethicone (Maalox) 30 ml PO Q4HR PRN PRN Reason: GI DISTRESS Stop: 03/24/19 04:10 Amlodipine Besylate (Norvasc) 10 mg PO DAILY [facility] Stop: 03/24/19 08:59 Last Admin: 01/26/19 08:37 Dose: 10 mg Benztropine Mesylate (Cogentin) 2 mg PO HS [facility] Stop: 03/24/19 20:59 Last Admin: 01/26/19 21:48 Dose: 2 mg Buspirone HCl (Buspar) 10 mg PO BID [facility]; Protocol Stop: 03/25/19 08:59 Last Admin: 01/26/19 16:38 Dose: 10 mg Calcium/Vitamin D (Oscal W/Vitamin D) 1 tab PO BID [facility] Stop: 03/24/19 08:59 Last Admin: 01/26/19 16:39 Dose: 1 tab Divalproex Sodium (Depakote Dr) 500 mg PO BID [facility]; Protocol Stop: 03/24/19 08:59 Last Admin: 01/26/19 16:39 Dose: 500 mg Docusate Sodium (Colace) 250 mg PO DAILY [facility] Stop: 03/24/19 08:59 Last Admin: 01/26/19 08:39 Dose: 250 mg Lorazepam (Ativan) 0.5 mg PO Q4HR PRN; Protocol PRN Reason: Anxiety Stop: 03/24/19 00:08 Lorazepam (Ativan) 0.75 mg PO DAILY [facility]; Protocol Stop: 03/24/19 08:59 Last Admin: 01/26/19 08:38 Dose: 0.75 mg Magnesium Hydroxide (Milk Of Magnesia) 30 ml PO HS [facility] Stop: 03/24/19 20:59 Last Admin: 01/26/19 21:49 Dose: 30 ml Metoprolol Tartrate (Lopressor) 25 mg PO BID [facility] Stop: 03/24/19 08:59 Last Admin: 01/26/19 16:39 Dose: 25 mg Multivitamins/Vitamin C (Theragran) 1 tab PO DAILY [facility] Stop: 03/24/19 08:59 Last Admin: 01/26/19 08:37 Dose: 1 tab Phenytoin (Dilantin) 150 mg PO BID [facility] Stop: 03/24/19 08:59 Last Admin: 01/26/19 16:37 Dose: 150 mg Risperidone 2 mg/ Risperidone (0.5 mg) 2.5 mg PO BID [facility] Stop: 03/24/19 08:59 Last Admin: 01/26/19 16:39 Dose: 2.5 mg Zolpidem Tartrate (Ambien) 5 mg PO HS PRN PRN Reason: Insomnia Stop: 03/24/19 00:08 Last Admin: 01/26/19 21:49 Dose: 5 mg General: Alert, Oriented x3, No acute distress HEENT: Atraumatic, PERRLA, EOMI Neck: Supple Cardiovascular: Regular rate, Normal S1, Normal S2 Lungs: Clear to auscultation Abdomen: Bowel sounds, Soft Extremities: no Clubbing, no Cyanosis, no Edema Neurological: Normal gait Assessment/Plan - Assessment Assessment: psychosis HTN, DM, CVA, Seizure d/o - Plan Plan: continue current treatment. Nutritional Asmnt/Malnutr-PDOC - Dietary Evaluation Malnutrition Findings (Please click <Entered> for more info): Nutritional Asmnt/Malnutrition Start: 01/25/19 17: 22 Text: Status: Complete Freq: Protocol: Document 01/25/19 17:22 LCHENG (Rec: 01/25/19 17:36 HENG [email or web address]) Nutritional Asmnt/Malnutrition Patient General Information Nutritional Screening Moderate Risk Diagnosis psychosis Pertinent Medical Hx/Surgical Hx HTN, DM, CVA/TIA, seizures, dementia, psychosis Subjective Information Pt seen in bed, awake, Danish speaking. Per EMR, PO intake 100%. Current Diet Order/ Nutrition Support NCS Pertinent Medications oscal w/vit D, colace, theragran Pertinent Labs 01/22 Na 133, glucose 135, alb 4 .1 Nutritional Hx/Data Height 1.73 m Height (Calculated Centimeters) 172.7 Current Weight (lbs) 72.575 kg Weight (Calculated Kilograms) 72.6 Weight (Calculated Grams) 58379.8 [place] Body Weight 154 Body Mass Index (BMI) 24.3 Weight Status Approriate GI Symptoms GI Symptoms None Last BM 01/25 Difficult in: None Skin Integrity/Comment: intact Current %PO Good (75-100%) Estimated Nutritional Goals BEE in Kcals: Using Current wt Calories/Kcals/Kg 25-30 Kcals Calculated 5220-6466 Protein: Using Current wt Protein g/k.8 Protein Calculated 58 Fluid: ml 25-30ml (1ml/kcal) Nutritional Problem No current Nutrition Prob Problem N/A Malnutrition Alert Is there a minimum of two criteria No selected? Query Text:Check all the applicable criteria. A minimum of two criteria are recommended for diagnosis of either severe or non-severe malnutrition. Malnutrition Related to Morbid Obesity Malnutrition related to morbid obesity No Intervention/Recommendation Comments 1. Continue with NCS diet as ordered. 2. Monitor PO intake, wt, labs and skin integrity 3. F/U as low risk in 7 days Expected Outcomes/Goals Expected Outcomes/Goals 1. PO intake to meet at least 75% of nutritional needs. 2. Wt stability, skin to remain intact, labs to approach WNL.
[2019-01-27] MEDS: Multivitamin Tab PO SCH (08:31)
[2019-01-27] MEDS: Calcium Carb/Vit D 500 mg/200 U Tab PO SCH ×2 (08:31→17:49)
--- NOTE | 2019-01-27 13:21 | Progress Notes ---
DATE: 01/26/2019 SUBJECTIVE: Chart reviewed and the patient interviewed. Also, discussed the patient's condition with the staff and reviewed records and labs. The patient is still in a depressed mood and he is still anxious and agitated. Also, still has disorganized thoughts and rambling in Armenian language with difficulty to understand. The patient denies any agitation and he denies any auditory or visual hallucinations, but he is still responding to stimuli. Otherwise, no side effects of medications. ASSESSMENT: The patient is still depressed and is agitated. TREATMENT PLAN: Continue monitoring his behavior and his condition closely. Also, continue adjusting psychotropic medications and work on behavioral modification. JOB# [id number]
[2019-01-27] MEDS: Magnesium Hydroxide (MOM) 30 mL UDC PO SCH (20:40)
[2019-01-27] MEDS: Benztropine 1 MG TAB PO SCH (20:40)
--- NOTE | 2019-01-27 22:47 | Progress Notes ---
DATE: 01/27/[address] Morales. IDENTIFYING DATA: A 63-year-old male brought in here from a half-way. He presents disorganized, believe he is an 18-year-old single, not , agitated. CURRENT MEDICATIONS: Include amlodipine, Cogentin 2 mg p.o. at bedtime, BuSpar, Depakote 500 mg p.o. b.i.d., metoprolol, Dilantin, and risperidone 5 mg a day. Today on [id number] evaluation, continues to present incoherent, disorganized, minimally interactive, anxious, and although he speaks Iranian and I can understand, derails in conversation. MENTAL STATUS EXAMINATION: Depressed, agitated, distressful. We will continue with the current medication regimen to continue to reach steady state and recently adjusted. JOB# [id number]
--- NOTE | 2019-01-28 05:58 | General Progress Note ---
Subjective - Review of Systems Service Date: 01/28/19 Subjective: Patient is awake,alert, afebrile VS T97.2 P70 R18 BP 121/78 Objective - Results Result Diagrams: 01/22/19 20:30 01/22/19 20:30 Recent Labs: Laboratory Last Values WBC 5.9 Th/cmm (4.8-10.8) 01/22/19 20:30 RBC 4.37 Mil/cmm (4.30-5.70) 01/22/19 20:30 Hgb 13.9 gm/dL (12-16) 01/22/19 20:30 Hct 41.0 % (41.0-60) 01/22/19 20:30 MCV 93.8 fl (80-99) 01/22/19 20:30 MCH 31.8 pg (26.0-30.0) H 01/22/19 20:30 MCHC Differential 33.9 pg (28.0-36.0) 01/22/19 20:30 RDW 12.3 % (11.5-20.0) 01/22/19 20:30 Plt Count 248 Th/cmm (150-400) 01/22/19 20:30 MPV 6.3 fl 01/22/19 20:30 Add Manual Diff YES 01/22/19 20:30 Band Neutrophils % 0 % (0-10) 01/22/19 20:30 Neutrophils (Manual) 44 % (40-80) 01/22/19 20:30 Lymphocytes 46 % (20-50) 01/22/19 20:30 Monocytes 9 % (2-10) 01/22/19 20:30 Eosinophils 1 % (0-5) 01/22/19 20:30 Basophils 0 % (0-3) 01/22/19 20:30 Sodium 133 mEq/L (136-145) L 01/22/19 20:30 Potassium 3.6 mEq/L (3.5-5.1) 01/22/19 20:30 Chloride 100 mEq/L (98-107) 01/22/19 20:30 Carbon Dioxide 23.0 mEq/L (21.0-31.0) 01/22/19 20:30 Anion Gap 13.6 (7.0-16.0) 01/22/19 20:30 BUN 12 mg/dL (7-25) 01/22/19 20:30 Creatinine 0.7 mg/dL (0.7-1.3) 01/22/19 20:30 Est GFR ( Amer) > 60.0 ml/min (>90) 01/22/19 20:30 Est GFR (Non-Af Amer) > 60.0 ml/min 01/22/19 20:30 BUN/Creatinine Ratio 17.1 01/22/19 20:30 Glucose 135 mg/dL (70-105) H 01/22/19 20:30 Calcium 9.1 mg/dL (8.6-10.3) 01/22/19 20:30 Total Bilirubin 0.3 mg/dL (0.3-1.0) 01/22/19 20:30 AST 18 U/L (13-39) 01/22/19 20:30 ALT 26 U/L (7-52) 01/22/19 20:30 Alkaline Phosphatase 86 U/L (34-104) 01/22/19 20:30 Total Protein 6.9 gm/dL (6.0-8.3) 01/22/19 20:30 Albumin 4.1 gm/dL (4.2-5.5) L 01/22/19 20:30 Globulin 2.8 gm/dL 01/22/19 20:30 Albumin/Globulin Ratio 1.5 (1.0-1.8) 01/22/19 20:30 Triglycerides 651 mg/dL (<150) H 01/22/19 20:30 Cholesterol 236 mg/dL (<200) H 01/22/19 20:30 LDL Cholesterol Direct 126 mg/dL (75-193) 01/22/19 20:30 HDL Cholesterol 38 mg/dL (23-92) 01/22/19 20:30 Urine Source CLEAN C 01/22/19 21:41 Urine Color YELLOW 01/22/19 21:41 Urine Clarity CLEAR (CLEAR) 01/22/19 21:41 Urine pH 7.0 (4.6 - 8.0) 01/22/19 21:41 Ur Specific [place] 1.010 (1.005-1.030) 01/22/19 21:41 Urine Protein NEGATIVE mg/dL (NEGATIVE) 01/22/19 21:41 Urine Glucose (UA) NEGATIVE mg/dL (NEGATIVE) 01/22/19 21:41 Urine Ketones NEGATIVE mg/dL (NEGATIVE) 01/22/19 21:41 Urine Blood NEGATIVE (NEGATIVE) 01/22/19 21:41 Urine Nitrate NEGATIVE (NEGATIVE) 01/22/19 21:41 Urine Bilirubin NEGATIVE (NEGATIVE) 01/22/19 21:41 Urine Urobilinogen 0.2 E.U./dL (0.2 - 1.0) 01/22/19 21:41 Ur Leukocyte Esterase NEGATIVE (NEGATIVE) 01/22/19 21:41 Urine RBC NONE SEEN /hpf (0-5) 01/22/19 21:41 Urine WBC 0-2 /hpf (0-5) 01/22/19 21:41 Ur Epithelial Cells NONE SEEN /lpf (FEW) 01/22/19 21:41 Urine Bacteria FEW /hpf (NONE SEEN) 01/22/19 21:41 Valproic Acid 55.0 ug/mL (50.0-100.0) 01/24/19 10:35 - Physical Exam Vitals and I&O: Vital Signs Temp 97.2 F 01/28/19 05:40 Pulse 70 01/28/19 05:40 Resp 18 01/28/19 05:40 BP 121/78 01/28/19 05:40 Pulse Ox 91 01/28/19 05:40 Intake & Output 01/27/19 01/27/19 01/28/19 06:59 18:59 06:59 Intake Total 180 240 Balance 180 240 Intake: Oral 180 240 Other: # Voids 2 2 # Bowel Movements 1 Active Medications: Current Medications Acetaminophen (Tylenol) 650 mg PO Q4HR PRN PRN Reason: Mild Pain / Temp above 100 Stop: 03/24/19 04:10 Al Hydrox/Mg Hydrox/Simethicone (Maalox) 30 ml PO Q4HR PRN PRN Reason: GI DISTRESS Stop: 03/24/19 04:10 Amlodipine Besylate (Norvasc) 10 mg PO DAILY [facility] Stop: 03/24/19 08:59 Last Admin: 01/27/19 08:31 Dose: 10 mg Benztropine Mesylate (Cogentin) 2 mg PO HS [facility] Stop: 03/24/19 20:59 Last Admin: 01/27/19 20:40 Dose: 2 mg Buspirone HCl (Buspar) 10 mg PO BID [facility]; Protocol Stop: 03/25/19 08:59 Last Admin: 01/27/19 17:48 Dose: 10 mg Calcium/Vitamin D (Oscal W/Vitamin D) 1 tab PO BID [facility] Stop: 03/24/19 08:59 Last Admin: 01/27/19 17:49 Dose: 1 tab Divalproex Sodium (Depakote Dr) 500 mg PO BID [facility]; Protocol Stop: 03/24/19 08:59 Last Admin: 01/27/19 17:50 Dose: 500 mg Docusate Sodium (Colace) 250 mg PO DAILY [facility] Stop: 03/24/19 08:59 Last Admin: 01/27/19 08:34 Dose: Not Given Lorazepam (Ativan) 0.5 mg PO Q4HR PRN; Protocol PRN Reason: Anxiety Stop: 03/24/19 00:08 Last Admin: 01/27/19 17:49 Dose: 0.5 mg Lorazepam (Ativan) 0.75 mg PO DAILY [facility]; Protocol Stop: 03/24/19 08:59 Last Admin: 01/27/19 08:32 Dose: 0.75 mg Magnesium Hydroxide (Milk Of Magnesia) 30 ml PO HS [facility] Stop: 03/24/19 20:59 Last Admin: 01/27/19 20:40 Dose: 30 ml Metoprolol Tartrate (Lopressor) 25 mg PO BID [facility] Stop: 03/24/19 08:59 Last Admin: 01/27/19 17:50 Dose: 25 mg Multivitamins/Vitamin C (Theragran) 1 tab PO DAILY [facility] Stop: 03/24/19 08:59 Last Admin: 01/27/19 08:31 Dose: 1 tab Phenytoin (Dilantin) 150 mg PO BID [facility] Stop: 03/24/19 08:59 Last Admin: 01/27/19 17:51 Dose: 150 mg Risperidone 2 mg/ Risperidone (0.5 mg) 2.5 mg PO BID [facility] Stop: 03/24/19 08:59 Last Admin: 01/27/19 17:50 Dose: 2.5 mg Zolpidem Tartrate (Ambien) 5 mg PO HS PRN PRN Reason: Insomnia Stop: 03/24/19 00:08 Last Admin: 01/27/19 20:40 Dose: 5 mg General: Alert, Oriented x3, No acute distress HEENT: Atraumatic, PERRLA, EOMI Neck: Supple Cardiovascular: Regular rate, Normal S1, Normal S2 Lungs: Clear to auscultation Abdomen: Bowel sounds, Soft Extremities: no Clubbing, no Cyanosis, no Edema Neurological: Normal gait Assessment/Plan - Assessment Assessment: psychosis HTN, DM, CVA, Seizure d/o - Plan Plan: continue current treatment. Nutritional Asmnt/Malnutr-PDOC - Dietary Evaluation Malnutrition Findings (Please click <Entered> for more info): Nutritional Asmnt/Malnutrition Start: 01/25/19 17: 22 Text: Status: Complete Freq: Protocol: Document 01/25/19 17:22 LCJENNIFERG (Rec: 01/25/19 17:36 [email or web address]) Nutritional Asmnt/Malnutrition Patient General Information Nutritional Screening Moderate Risk Diagnosis psychosis Pertinent Medical Hx/Surgical Hx HTN, DM, CVA/TIA, seizures, dementia, psychosis Subjective Information Pt seen in bed, awake, Mongolian speaking. Per EMR, PO intake 100%. Current Diet Order/ Nutrition Support NCS Pertinent Medications oscal w/vit D, colace, theragran Pertinent Labs 01/22 Na 133, glucose 135, alb 4 .1 Nutritional Hx/Data Height 1.73 m Height (Calculated Centimeters) 172.7 Current Weight (lbs) 72.575 kg Weight (Calculated Kilograms) 72.6 Weight (Calculated Grams) 27566.8 [place] Body Weight 154 Body Mass Index (BMI) 24.3 Weight Status Approriate GI Symptoms GI Symptoms None Last BM 01/25 Difficult in: None Skin Integrity/Comment: intact Current %PO Good (75-100%) Estimated Nutritional Goals BEE in Kcals: Using Current wt Calories/Kcals/Kg 25-30 Kcals Calculated 8559-0259 Protein: Using Current wt Protein g/k.8 Protein Calculated 58 Fluid: ml 25-30ml (1ml/kcal) Nutritional Problem No current Nutrition Prob Problem N/A Malnutrition Alert Is there a minimum of two criteria No selected? Query Text:Check all the applicable criteria. A minimum of two criteria are recommended for diagnosis of either severe or non-severe malnutrition. Malnutrition Related to Morbid Obesity Malnutrition related to morbid obesity No Intervention/Recommendation Comments 1. Continue with NCS diet as ordered. 2. Monitor PO intake, wt, labs and skin integrity 3. F/U as low risk in 7 days Expected Outcomes/Goals Expected Outcomes/Goals 1. PO intake to meet at least 75% of nutritional needs. 2. Wt stability, skin to remain intact, labs to approach WNL.
[2019-01-28] MEDS: Calcium Carb/Vit D 500 mg/200 U Tab PO SCH ×2 (09:24→17:25)
[2019-01-28] MEDS: Multivitamin Tab PO SCH (09:25)
[2019-01-28] MEDS: Magnesium Hydroxide (MOM) 30 mL UDC PO SCH (21:00)
[2019-01-28] MEDS: Benztropine 1 MG TAB PO SCH (21:00)
--- NOTE | 2019-01-28 23:17 | Progress Notes ---
DATE: 01/28/[address] Morales. SUBJECTIVE: The patient was seen and evaluated. The patient's chart reviewed ____. The patient smiles and then speaks in incoherent way and disorganized, minimally interactive and derails in conversation. MENTAL STATUS EXAMINATION: Agitated, derailed, disorganized thought process. ASSESSMENT AND PLAN: History of dementia with behavior disturbances. We will continue with the primary psychiatrist's treatment plan and goals. At this point unable to formulate a safe plan as he continues to be disorganized and agitated. JOB# [id number]
[2019-01-29] MEDS: Calcium Carb/Vit D 500 mg/200 U Tab PO SCH (08:25)
[2019-01-29] MEDS: Multivitamin Tab PO SCH (08:26)
--- NOTE | 2019-01-29 08:30 | General Progress Note ---
Subjective - Review of Systems Service Date: 01/29/19 Subjective: Patient is awake,alert, afebrile VS T97.7 P85 R20 BP 138/98 Objective - Results Result Diagrams: 01/22/19 20:30 01/22/19 20:30 Recent Labs: Laboratory Last Values WBC 5.9 Th/cmm (4.8-10.8) 01/22/19 20:30 RBC 4.37 Mil/cmm (4.30-5.70) 01/22/19 20:30 Hgb 13.9 gm/dL (12-16) 01/22/19 20:30 Hct 41.0 % (41.0-60) 01/22/19 20:30 MCV 93.8 fl (80-99) 01/22/19 20:30 MCH 31.8 pg (26.0-30.0) H 01/22/19 20:30 MCHC Differential 33.9 pg (28.0-36.0) 01/22/19 20:30 RDW 12.3 % (11.5-20.0) 01/22/19 20:30 Plt Count 248 Th/cmm (150-400) 01/22/19 20:30 MPV 6.3 fl 01/22/19 20:30 Add Manual Diff YES 01/22/19 20:30 Band Neutrophils % 0 % (0-10) 01/22/19 20:30 Neutrophils (Manual) 44 % (40-80) 01/22/19 20:30 Lymphocytes 46 % (20-50) 01/22/19 20:30 Monocytes 9 % (2-10) 01/22/19 20:30 Eosinophils 1 % (0-5) 01/22/19 20:30 Basophils 0 % (0-3) 01/22/19 20:30 Sodium 133 mEq/L (136-145) L 01/22/19 20:30 Potassium 3.6 mEq/L (3.5-5.1) 01/22/19 20:30 Chloride 100 mEq/L (98-107) 01/22/19 20:30 Carbon Dioxide 23.0 mEq/L (21.0-31.0) 01/22/19 20:30 Anion Gap 13.6 (7.0-16.0) 01/22/19 20:30 BUN 12 mg/dL (7-25) 01/22/19 20:30 Creatinine 0.7 mg/dL (0.7-1.3) 01/22/19 20:30 Est GFR ( Amer) > 60.0 ml/min (>90) 01/22/19 20:30 Est GFR (Non-Af Amer) > 60.0 ml/min 01/22/19 20:30 BUN/Creatinine Ratio 17.1 01/22/19 20:30 Glucose 135 mg/dL (70-105) H 01/22/19 20:30 Calcium 9.1 mg/dL (8.6-10.3) 01/22/19 20:30 Total Bilirubin 0.3 mg/dL (0.3-1.0) 01/22/19 20:30 AST 18 U/L (13-39) 01/22/19 20:30 ALT 26 U/L (7-52) 01/22/19 20:30 Alkaline Phosphatase 86 U/L (34-104) 01/22/19 20:30 Total Protein 6.9 gm/dL (6.0-8.3) 01/22/19 20:30 Albumin 4.1 gm/dL (4.2-5.5) L 01/22/19 20:30 Globulin 2.8 gm/dL 01/22/19 20:30 Albumin/Globulin Ratio 1.5 (1.0-1.8) 01/22/19 20:30 Triglycerides 651 mg/dL (<150) H 01/22/19 20:30 Cholesterol 236 mg/dL (<200) H 01/22/19 20:30 LDL Cholesterol Direct 126 mg/dL (75-193) 01/22/19 20:30 HDL Cholesterol 38 mg/dL (23-92) 01/22/19 20:30 Urine Source CLEAN C 01/22/19 21:41 Urine Color YELLOW 01/22/19 21:41 Urine Clarity CLEAR (CLEAR) 01/22/19 21:41 Urine pH 7.0 (4.6 - 8.0) 01/22/19 21:41 Ur Specific [place] 1.010 (1.005-1.030) 01/22/19 21:41 Urine Protein NEGATIVE mg/dL (NEGATIVE) 01/22/19 21:41 Urine Glucose (UA) NEGATIVE mg/dL (NEGATIVE) 01/22/19 21:41 Urine Ketones NEGATIVE mg/dL (NEGATIVE) 01/22/19 21:41 Urine Blood NEGATIVE (NEGATIVE) 01/22/19 21:41 Urine Nitrate NEGATIVE (NEGATIVE) 01/22/19 21:41 Urine Bilirubin NEGATIVE (NEGATIVE) 01/22/19 21:41 Urine Urobilinogen 0.2 E.U./dL (0.2 - 1.0) 01/22/19 21:41 Ur Leukocyte Esterase NEGATIVE (NEGATIVE) 01/22/19 21:41 Urine RBC NONE SEEN /hpf (0-5) 01/22/19 21:41 Urine WBC 0-2 /hpf (0-5) 01/22/19 21:41 Ur Epithelial Cells NONE SEEN /lpf (FEW) 01/22/19 21:41 Urine Bacteria FEW /hpf (NONE SEEN) 01/22/19 21:41 Valproic Acid 55.0 ug/mL (50.0-100.0) 01/24/19 10:35 - Physical Exam Vitals and I&O: Vital Signs Temp 97.7 F 01/29/19 05:40 Pulse 77 01/29/19 08:27 Resp 20 01/29/19 05:40 BP 123/81 01/29/19 08:27 Pulse Ox 92 01/29/19 05:40 Intake & Output 01/28/19 01/29/19 01/29/19 18:59 06:59 18:59 Intake Total 240 Balance 240 Intake: Oral 240 Other: # Voids 2 Active Medications: Current Medications Acetaminophen (Tylenol) 650 mg PO Q4HR PRN PRN Reason: Mild Pain / Temp above 100 Stop: 03/24/19 04:10 Al Hydrox/Mg Hydrox/Simethicone (Maalox) 30 ml PO Q4HR PRN PRN Reason: GI DISTRESS Stop: 03/24/19 04:10 Amlodipine Besylate (Norvasc) 10 mg PO DAILY [facility] Stop: 03/24/19 08:59 Last Admin: 01/29/19 08:27 Dose: 10 mg Benztropine Mesylate (Cogentin) 2 mg PO HS [facility] Stop: 03/24/19 20:59 Last Admin: 01/28/19 21:00 Dose: 2 mg Buspirone HCl (Buspar) 10 mg PO BID [facility]; Protocol Stop: 03/25/19 08:59 Last Admin: 01/29/19 08:25 Dose: 10 mg Calcium/Vitamin D (Oscal W/Vitamin D) 1 tab PO BID [facility] Stop: 03/24/19 08:59 Last Admin: 01/29/19 08:25 Dose: 1 tab Divalproex Sodium (Depakote Dr) 500 mg PO BID [facility]; Protocol Stop: 03/24/19 08:59 Last Admin: 01/29/19 08:27 Dose: 500 mg Docusate Sodium (Colace) 250 mg PO DAILY [facility] Stop: 03/24/19 08:59 Last Admin: 01/29/19 08:25 Dose: 250 mg Lorazepam (Ativan) 0.5 mg PO Q4HR PRN; Protocol PRN Reason: Anxiety Stop: 03/24/19 00:08 Last Admin: 01/28/19 17:25 Dose: 0.5 mg Lorazepam (Ativan) 0.75 mg PO DAILY [facility]; Protocol Stop: 03/24/19 08:59 Last Admin: 01/29/19 08:25 Dose: 0.75 mg Magnesium Hydroxide (Milk Of Magnesia) 30 ml PO HS [facility] Stop: 03/24/19 20:59 Last Admin: 01/28/19 21:00 Dose: 30 ml Metoprolol Tartrate (Lopressor) 25 mg PO BID [facility] Stop: 03/24/19 08:59 Last Admin: 01/29/19 08:27 Dose: 25 mg Multivitamins/Vitamin C (Theragran) 1 tab PO DAILY [facility] Stop: 03/24/19 08:59 Last Admin: 01/29/19 08:26 Dose: 1 tab Phenytoin (Dilantin) 150 mg PO BID [facility] Stop: 03/24/19 08:59 Last Admin: 01/29/19 08:24 Dose: 150 mg Risperidone 2 mg/ Risperidone (0.5 mg) 2.5 mg PO BID [facility] Stop: 03/24/19 08:59 Last Admin: 01/29/19 08:26 Dose: 2.5 mg Zolpidem Tartrate (Ambien) 5 mg PO HS PRN PRN Reason: Insomnia Stop: 03/24/19 00:08 Last Admin: 01/28/19 21:00 Dose: 5 mg General: Alert, Oriented x3, No acute distress HEENT: Atraumatic, PERRLA, EOMI Neck: Supple Cardiovascular: Regular rate, Normal S1, Normal S2 Lungs: Clear to auscultation Abdomen: Bowel sounds, Soft Extremities: no Clubbing, no Cyanosis, no Edema Neurological: Normal gait Assessment/Plan - Assessment Assessment: psychosis HTN, DM, CVA, Seizure d/o - Plan Plan: continue current treatment. Nutritional Asmnt/Malnutr-PDOC - Dietary Evaluation Malnutrition Findings (Please click <Entered> for more info): Nutritional Asmnt/Malnutrition Start: 01/25/19 17: 22 Text: Status: Complete Freq: Protocol: Document 01/25/19 17:22 LCHENG (Rec: 01/25/19 17:36 LCHENG [email or web address]) Nutritional Asmnt/Malnutrition Patient General Information Nutritional Screening Moderate Risk Diagnosis psychosis Pertinent Medical Hx/Surgical Hx HTN, DM, CVA/TIA, seizures, dementia, psychosis Subjective Information Pt seen in bed, awake, Czech speaking. Per EMR, PO intake 100%. Current Diet Order/ Nutrition Support NCS Pertinent Medications oscal w/vit D, colace, theragran Pertinent Labs 01/22 Na 133, glucose 135, alb 4 .1 Nutritional Hx/Data Height 1.73 m Height (Calculated Centimeters) 172.7 Current Weight (lbs) 72.575 kg Weight (Calculated Kilograms) 72.6 Weight (Calculated Grams) 05139.8 [place] Body Weight 154 Body Mass Index (BMI) 24.3 Weight Status Approriate GI Symptoms GI Symptoms None Last BM 01/25 Difficult in: None Skin Integrity/Comment: intact Current %PO Good (75-100%) Estimated Nutritional Goals BEE in Kcals: Using Current wt Calories/Kcals/Kg 25-30 Kcals Calculated 5496-0145 Protein: Using Current wt Protein g/k.8 Protein Calculated 58 Fluid: ml 25-30ml (1ml/kcal) Nutritional Problem No current Nutrition Prob Problem N/A Malnutrition Alert Is there a minimum of two criteria No selected? Query Text:Check all the applicable criteria. A minimum of two criteria are recommended for diagnosis of either severe or non-severe malnutrition. Malnutrition Related to Morbid Obesity Malnutrition related to morbid obesity No Intervention/Recommendation Comments 1. Continue with NCS diet as ordered. 2. Monitor PO intake, wt, labs and skin integrity 3. F/U as low risk in 7 days Expected Outcomes/Goals Expected Outcomes/Goals 1. PO intake to meet at least 75% of nutritional needs. 2. Wt stability, skin to remain intact, labs to approach WNL.
--- NOTE | 2019-01-30 00:16 | Discharge Summary ---
DATE OF DISCHARGE: 01/29/2019 THE PATIENT'S AGE: 63. SEX: Male. PHYSICIAN: Dr. Morales FINAL DIAGNOSIS AND PRIMARY DIAGNOSES: Schizophrenic disorder. SECONDARY DIAGNOSES: Dementia, moderate to severe, with psychotic features. REASON FOR HOSPITALIZATION: The patient was admitted to the hospital from [facility] because the patient had increasing behavior problems and the patient was agitated and he also was delusional and paranoid and he believed that he is an 18-year-old of age and that he is single, although never and no children and he was in an irritable mood and confused. HOSPITAL COURSE: The patient continued to be confused and continued to be agitated. The patient also needs a lot of redirections. He continues mumbling in Tajik language and wandering around the unit, talking to himself and intrusive to others. The patient was given BuSpar in dose of 10 mg twice a day and her Depakote 500 mg twice a day. The patient also was given Risperdal and the dose adjusted to 2.5 mg twice a day. Gradually, the patient's affect was brighter. The patient was calmer. The patient was less agitated and less irritable and able to follow directions easily. The patient also was monitored for seizures and the patient has no major medical problems while in the hospital. AFTER DISCHARGE PLANS: The patient discharged from the hospital and returned to [facility] with plans for outpatient treatment and follow up there. EXPECTED OUTCOME AFTER DISCHARGE: Fair if the patient continues to comply with taking his medications and follow up with discharge plans. [facility]# [id number]
== END 2019-01-29 15:05 | DRG 885 ==
LOC: ER 19:39 → GERO 22:24 → GERO2 01-23 04:48
PROVIDERS: ADMIT Psychiatry & Neurology Psychiatry; ATTEND Psychiatry & Neurology Psychiatry
DX: F25.9 Schizoaffective disorder, unspecified (principal); F03.91 Unspecified dementia, unspecified severity, with behavioral disturbance; I10 Essential (primary) hypertension; E11.9 Type 2 diabetes mellitus without complications; F29 Unspecified psychosis not due to a substance or known physiological condition; G40.909 Epilepsy, unspecified, not intractable, without status epilepticus; E78.5 Hyperlipidemia, unspecified; Z86.73 Personal history of transient ischemic attack (TIA), and cerebral infarction without residual deficits; Z88.5 Allergy status to narcotic agent
CPT/HCPCS: 36415-UA; 80053-TC; 80061-TC; 80164-TC; 81001-TC; 83036-90; 85007-TC; 85025-TC; 93005; G0410; Z7610